=== PATIENT | male | born 1960 | race Caucasian/White ===

== ENCOUNTER 2019-04-12 14:54 | Outpatient (CLI) | payer BC, SELFPAY ==
--- NOTE | ~2019-04-12 | XR_ITS ---
XR hip RT min 3V w AP pelvis 04/12/2019 15:26 Indication: Right hip pain Procedure: 4 views of the right hip including AP pelvis Comparison: No prior studies for comparison. Findings: There is osteoarthritis of the hips, severe on the right and moderate on the left. There is lower lumbar spondylosis. No acute fracture or traumatic malalignment. Pelvic rings are intact. Sacr al foramen are symmetric. Impression: 1: Bilateral osteoarthritis of the hips, severe on the right and moderate on the left. Reviewed, dictated and finalized at location A. ROL ROOM TECHNICIAN Impression: 1: Bilateral osteoarthritis of the hips, severe on the right and moderate on th e left.
--- NOTE | ~2019-04-12 | XR_ITS ---
XR knee LT 3V DATE: 04/12/2019 15:27 INDICATION: Left knee pain TECHNIQUE: AP, lateral COMPARISON: None FINDINGS: No fracture, dislocation, periosteal reaction or bone destruction. The joint spaces are re latively preserved. No radiopaque intra-articular loose body or chondrocalcinosis. IMPRESSION: No significant abnormality Reviewed, dictated and finalized at location B. NUTRITION SPECIALIST IMPRESSION: No significant abnormality
== END 2019-04-12 14:55 | disposition home or self-care (01) ==
PROVIDERS: PCP Family Medicine; Visit Provider Family Medicine
DX: M25.551 Pain in right hip (principal); M25.562 Pain in left knee; M16.0 Bilateral primary osteoarthritis of hip
CPT/HCPCS: 73502; 73562

== ENCOUNTER 2019-05-13 12:59 | Outpatient (CLI) | payer BC, SELFPAY ==
--- NOTE | ~2019-05-13 | XR_ITS ---
EXAMINATION: XR lg joint inject/asp w image DATE: 05/13/2019 14:27 INDICATION: Right hip osteoarthritis with pain TECHNIQUE: A time-out was performed to verify the patient's name, date of , and procedure to b e performed. The procedure including the risks, benefits, and alternatives was discussed with the pat ient. Risks discussed included bleeding, allergic reaction and infection. The patient understood the risks and agreed to proceed. The skin overlying the right hip joint was prepped and draped in usual sterile fashion. Anesthetic was administered with 1% lidocaine subcutaneously. A 22 G needle was ad vanced under fluoroscopic guidance into the joint. Injection of 0.6 mL of Omnipaque 240 confirmed in tra-articular position of the needle. Subsequently, injectate consisting of 3 mm of a 2:1 mixture of 0.5% bupivacaine: 80 mg/mL Depo-Medrol for a total dosage of 80 mg Depo-Medrol was instilled. Wash[place] t of contrast was seen confirming intra-articular administration. The needle was removed and the entr y site was cleaned and dressed. There were no immediate complications. Fluoroscopy exposure time was 0.1 minutes. The total number of images was 2. FINDINGS: Real-time fluoroscopy demonstrates the needle in the right hip joint. Severe right hip oste oarthritis. Patient's pain prior to procedure:6/10. Patient's pain following the procedure: 06/03. IMPRESSION: 1. Right hip injection of local anesthetic and steroid with decrease in the patient's presenting pain . Reviewed, dictated and finalized at location A. IMPRESSION: 1. Right hip injection of local anesthetic and steroid with decrease in the pat ient's presenting pain.
== END 2019-05-13 13:00 | disposition home or self-care (01) ==
PROVIDERS: PCP Family Medicine; Visit Provider Orthopaedic Surgery
DX: M16.11 Unilateral primary osteoarthritis, right hip (principal)
CPT/HCPCS: 20610; 77002; J1040; Q9966

== ENCOUNTER 2019-11-30 03:07 | Outpatient (CLI) | payer BC, SELFPAY ==
[2019-11-30 18:16] LABS: SARS-CoV-2 RNA PCR Negative
== END 2019-11-30 03:08 | disposition home or self-care (01) ==
PROVIDERS: PCP Family Medicine; Visit Provider Internal Medicine Cardiovascular Disease
DX: Z01.812 Encounter for preprocedural laboratory examination (principal); Z20.828 Contact with and (suspected) exposure to other viral communicable diseases
CPT/HCPCS: 87635; C9803; U0003

== ENCOUNTER 2019-12-02 04:22 | Day surgery (SDC) | payer BC, SELFPAY ==
[2019-12-01 16:58] VITALS: BMI 27.1
--- NOTE | 2019-12-02 09:30 | SUR.PREOP ---
ARRIVES VIA WC TO [facility] FOR SCHEDULED BIOTRONIK BIOMONITOR IMPLANT W/ DR. STRANGE. ORIENTED TO ROOM, PLAN OF CARE, PROCEDURE. QUESTIONS ANSWERED. VS OBTAINED, SKIN PREP COMPLETED, CONSENT SIGNED. STATES LAST DOSE OF XARELTO WAS 11/28/2019. WILL CONTINUE TO MONITOR.
[2019-12-02 09:50] VITALS: BP 190/114; PULSE 68; RESP 16; TEMP 36.1; O2SAT 100
--- NOTE | 2019-12-02 10:00 | SUR.PREOP ---
JESSICA Culver FROM [employer] HERE FOR PROCEDURE.
--- NOTE | 2019-12-02 10:20 | SUR.PREOP ---
DR. STRANGE HERE TO SEE PT PRIOR TO PROCEDURE.
--- NOTE | 2019-12-02 10:33 | WPDHPUPDATE1 ---
History and Physical Update Update Date/Time: 12/02/19 10:33 History and Physical has been reviewed, including an updated exam of the patient. There are NO changes in the patient's condition. Risks, benefits, and alternatives have been discussed and questions answered. Patient agrees to proceed with procedure.
--- NOTE | 2019-12-02 10:33 | WPDMODSED ---
Moderate Sedation Note-Pt Data Patient Data Diagnosis: Paroxysmal atrial fibrillation, status post AFib ablation/pulmonary vein isolation Present Complaint: paroxysmal atrial fibrillation Procedure to be performed/Plan: insertion of a loop recorder under local anesthesia, possible conscious sedation Allergies Allergy/AdvReac Type Severity Reaction Status Date / Time No Known Allergies Allergy Verified 11/29/19 14:05 Home Medications Medication Instructions Recorded Confirmed Type metoprolol succinate 100 mg 100 mg PO DAILY 01/06/19 12/01/19 History tablet,extended release 24 hr rivaroxaban 20 mg tablet 20 mg PO DAILY 01/06/19 12/01/19 History glucosamine HCl 1,500 mg tablet 1,500 mg PO DAILY 01/12/19 12/01/19 History ferrous sulfate 325 mg (65 mg 325 mg PO DAILY 04/16/19 12/01/19 History iron) tablet lisinopril 10 mg tablet 10 mg PO BID #60 tablet 11/04/19 12/01/19 Rx tramadol 50 mg tablet 50 mg PO Q8H PRN #90 tablet 11/12/19 12/01/19 Rx B-complex with vitamin C 1 cap PO DAILY 11/29/19 12/01/19 History Lactobacills gasseri-Bifidobac 1 cap PO DAILY 11/29/19 12/01/19 History bifidum,longum 1.5 billion cell capsule omega-3 fatty acids 180 mg-fish 1 cap PO DAILY 11/29/19 12/01/19 History oil 400 mg capsule amiodarone 400 mg PO BID 12/01/19 12/01/19 History milk thistle seed extract 140 mg PO DAILY 12/01/19 12/01/19 History multivitamin 1 tablet PO DAILY 12/01/19 12/01/19 History Sedation/Anesthesia: No previous sedation/anesthesia problems (including family history). 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 Surgical History Surgical History S/P ablation of atrial fibrillation Family History Family History Other Carcinoma of colon Hypertension Social History Social History Smoking status: Never smoker Second hand tobacco smoke exposure: Yes Smoking end date: 02/24/98 Alcohol intake: current Drinks per week: 2 Alcohol use details: socially Substance use: never Substance use type: does not use Living arrangements: alone Gender identity (if verbalized by the patient): Male Spiritual care concerns: No Agree to blood products: Yes Mod Sed Physical Exam Physical Exam Pre Procedural Exam: Normal: Appearance, Eyes, Ears, Nose, Neck, Throat, Airway, Lungs, Heart Size, Heart Rate, Neuro Exam, Abdomen, Kidneys, Breasts, Extremities and Skin ( skin over her left parasternal area is intact) and Variation: Heart Rhythm ( probably sinus rhythm with PACs or PVCs) Hours since solid foods: 12 Hours since liquid intake: 12 Internal Medicine - PN: Obj Da Vital Signs Vital Signs: Vital Signs - 24 hr 12/02/19 09:50 Temperature 96.9 F L Pulse Rate 68 Respiratory Rate 16 Blood Pressure 190/114 H Pulse Oximetry 100 ASA Classification/Sedation ASA Classification/Sedation Risks: Risks, benefits and alternatives explained and patient/family accepted plan for sedation. patient has held the last 2 doses of Xarelto. Patient re-evaluated immediately prior to sedation.
--- NOTE | 2019-12-02 10:50 | PM.PROC ---
Procedure Note - Detailed Date of procedure: 12/02/19 Pre-op diagnosis: PAF Post-op diagnosis: same Procedure performed: Implantation of a Biotronik loop recorder Description of procedure: After informed consent the patient was given lidocaine local anesthesia in the 4th intercostal space in the left parasternal area. We made Biotronik loop recorder was inserted without difficulty. Hemostasis obtained with local pressure. The incision was closed with skin adhesive. The area was dressed with a sterile dressing. The patient tolerated the procedure well. R wave sensing was 1.42 V. Implants: Biotronik loop recorder, model [id number], serial [id number] Anesthesia: local ( 1% lidocaine) Surgeon: Kenisha Umanzor MD Estimated blood loss (mL): 2 Drains: No Packing: No Pathology: none sent Complications: No immediate complications Condition: stable Disposition: observation
--- NOTE | 2019-12-02 10:52 | PM.OP ---
Procedure Note - Brief Procedure Note - Brief Date of procedure: 12/02/19 Pre-op diagnosis: PAF Post-op diagnosis: same Description of procedure: uneventful implant of a Biotronik loop recorder left parasternal area Implants: Biotronik loop recorder Surgeon: Kenisha Umanzor MD Complications: No immediate complications Disposition: observation
== END 2019-12-02 11:45 | disposition home or self-care (01) ==
PROVIDERS: PCP Family Medicine; Visit Provider Internal Medicine Cardiovascular Disease
PROC: (CPT 33285; principal; 2019-12-02 10:00)
DX: I48.0 Paroxysmal atrial fibrillation (principal); Z79.01 Long term (current) use of anticoagulants; D50.9 Iron deficiency anemia, unspecified
CPT/HCPCS: 33285; C1764

== ENCOUNTER 2020-01-31 08:56 | Outpatient (CLI) | payer BC, SELFPAY ==
--- NOTE | ~2020-01-31 | XR_ITS ---
EXAMINATION: XR ankle LT min 3V DATE: 01/31/2020 09:33 INDICATION: Left foot and ankle pain TECHNIQUE: Anteroposterior, oblique and lateral views of the left ankle were obtained. COMPARISON: None. FINDINGS: Malunion of a chronic segmental fracture of the distal left fibular diaphysis which has healed with 3 0 degree lateral angulation. There is significant widening of the distal tibiofibular syndesmosis. Th ere is advanced secondary osteoarthritis at the ankle joint with osteolysis and significant loss of b one stock at the lateral aspect of the tibial plafond as well as the lateral aspect of the talar dome . This results in 65 degrees valgus angulation of the talus which is subluxed laterally into the spac e created by the distal tibiofibular diastases and the defect at the medial aspect of the tibial plaf ond. There is heterotopic ossification versus chronic displaced bone fragments anterior and posterior to the ankle. There is some periosteal reaction along the medial metaphyseal region of the distal ti polina. No acute fractures identified. There appears be collapse of both the longitudinal and transverse arch of the foot. The joint spaces in the visualized mid and hindfoot appear relatively preserved as lacie from the subtalar joint which is not adequately profiled for proper assessment. Prominent soft ti ssue swelling about the distal lower leg, ankle and hindfoot. IMPRESSION: 1. Advanced osteoarthritis and marked valgus angulation at the tibiotalar articulation which is likel y secondary to chronic malunited distal fibular fracture with associated distal tibiofibular syndesmo tic diastases. Reviewed, dictated and finalized at location A. AL RESCUER IMPRESSION: 1. Advanced osteoarthritis and marked valgus angulation at the tibiotalar artic ulation which is likely secondary to chronic malunited distal fibular fracture with associated distal tibiofibular syndesmotic diastases.
== END 2020-01-31 08:57 | disposition home or self-care (01) ==
LOC: CHSIMG 08:59
PROVIDERS: PCP Physician Assistant; Visit Provider Orthopaedic Surgery
DX: M25.572 Pain in left ankle and joints of left foot (principal)
CPT/HCPCS: 73610

== ENCOUNTER 2020-02-03 10:51 | Outpatient (CLI) | payer BC, SELFPAY ==
--- NOTE | 2020-02-03 11:30 | NEURO_ITS ---
Impression: # Complains of numbness of hands. # Bilateral Carpal Tunnel Syndrome, left more than right. # Bilateral ulnar neuropathy across the elbows, left more than right. # Abnormal needle/EMG exam. Nerve Conduction Studies Anti Sensory Summary Table Stim Site NR Peak (ms) P-T Amp (?V) Site1 Site2 Delta-P (ms) Dist (cm) Pj (m/s) Left Median Anti Sensory (2-3nd Digit) Wrist 7.5 19.3 Wrist 2-3nd Digit 7.5 14.0 19 Wrist 6.3 21.5 Wrist 2-3nd Digit 7.5 14.0 19 Right Median Anti Sensory (2-3nd Digit) Wrist 5.8 7.5 Wrist 2-3nd Digit 5.8 14.0 24 Wrist 5.2 19.4 Wrist 2-3nd Digit 5.8 14.0 24 Left Radial Anti Sensory (Base 1st Digit) Wrist 2.3 8.7 Wrist Base 1st Digit 2.3 0.0 Right Radial Anti Sensory (Base 1st Digit) Wrist 3.3 4.0 Wrist Base 1st Digit 3.3 0.0 Left Ulnar Anti Sensory (5th Digit) Wrist 4.1 31.1 Wrist 5th Digit 4.1 14.0 34 Right Ulnar Anti Sensory (5th Digit) Wrist 3.3 11.7 Wrist 5th Digit 3.3 14.0 42 Motor Summary Table Stim Site NR Onset (ms) O-P Amp (mV) Site1 Site2 Delta-0 (ms) Dist (cm) Pj (m/s) Left Median Motor (Abd Poll Brev) Wrist 6.6 3.0 Elbow Wrist 6.2 31.0 50 Elbow 12.8 3.2 Right Median Motor (Abd Poll Brev) Wrist 5.7 1.8 Elbow Wrist 5.9 32.0 54 Elbow 11.6 3.6 Left Ulnar Motor (Abd Dig Minimi) Wrist 3.6 7.6 A Elbow Wrist 8.4 33.0 39 A Elbow 12.0 5.2 B Elbow Wrist 6.2 28.0 45 B Elbow 9.8 4.5 Right Ulnar Motor (Abd Dig Minimi) Wrist 3.5 3.3 A Elbow Wrist 8.1 32.0 40 A Elbow 11.6 1.6 B Elbow Wrist 4.7 24.0 51 B Elbow 8.2 2.0 F Wave Studies NR F-Lat (ms) L-R F-Lat (ms) Left Median (Mrkrs) (Abd Poll Brev) 29.77 0.00 Right Median (Mrkrs) (Abd Poll Brev) 29.77 0.00 Left Ulnar (Mrkrs) (Abd Dig Min) 29.45 0.44 Right Ulnar (Mrkrs) (Abd Dig Min) 29.01 0.44 EMG Side Muscle Nerve Root Ins Act Fibs Amp Dur Recrt Comment Right 1stDorInt Ulnar C8-T1 Nml Nml Nml >12ms Reduced Right Ext Indicis Radial (Post Int) C7-8 Nml Nml Nml Nml Nml Right Ext Digitorum Radial (Post Int) C7-8 Nml Nml Nml Nml Nml Right BrachioRad Radial C5-6 Nml Nml Nml Nml Nml Right PronatorTeres Median C6-7 Nml Nml Nml Nml Nml Right Abd Poll Brev Median C8-T1 Nml Nml Nml >12ms Reduced Left 1stDorInt Ulnar C8-T1 Nml Nml Nml >12ms Reduced Left Ext Indicis Radial (Post Int) C7-8 Nml Nml Nml Nml Nml Left Ext Digitorum Radial (Post Int) C7-8 Nml Nml Nml Nml Nml Left BrachioRad Radial C5-6 Nml Nml Nml Nml Nml Left PronatorTeres Median C6-7 Nml Nml Nml Nml Nml Left Abd Poll Brev Median C8-T1 Nml Nml Nml >12ms Reduced Right ABD Dig Min Ulnar C8-T1 Nml Nml Nml >12ms Reduced Left ABD Dig Min Ulnar C8-T1 Nml Nml Nml >12ms Reduced MTDD
== END 2020-02-03 10:52 | disposition home or self-care (01) ==
PROVIDERS: PCP Physician Assistant; Visit Provider Physician Assistant
DX: G56.03 Carpal tunnel syndrome, bilateral upper limbs (principal); G56.23 Lesion of ulnar nerve, bilateral upper limbs
CPT/HCPCS: 95886; 95911

== ENCOUNTER 2020-12-07 13:52 | Outpatient (RCR) | payer BC, MEDICAID, SELFPAY ==
--- NOTE | 2020-12-07 15:11 | PTOPEVAL ---
PHYSICAL THERAPY EVALUATION AND POC Thank you for referring Terrence Todd to [facility].? The patient is scheduled to be seen for therapy? 1-2/week for 4 weeks. Please review, sign, date and return this plan of care FREDA. I agree with and certify that the following plan of care is medically necessary. Referring Physician Date Attending Provider: Mari Herrera PA-C Evaluation Evaluation Information Problem Diagnosis left BKA Onset 3months alvarez Subjective Information Terrence is here following a Query Text:As Reported By Patient/ left below knee amputation on Family 08/17/2020. Has a prosthetic that he is wearing today - it does keep twisting so we will educate on using sock ply to stabilize. Has right hip pain and arthritis. He was supposed to get a JORGITO but COVID delayed the surgery but then he got an abcess that resulted in poor healing and then an amputation . occasional phantom pain. Pain Assessment Timing of Pain Assessment Timing of Pain Assessment Assessment Self Report Self Report Pain Level 0 Pain Score Pain Score 0: Self Report Lower Extremity Muscle Strength Testing Hip Strength Right Hip Flexion Strength 5 Normal Hip Abduction Strength 4- Good - Left Hip Flexion Strength 4+ Good + Hip Abduction Strength 4- Good - Hip Strength Comments unable to lie on stomach due to neck pain - unable to test hip extension strength Knee Strength Bilateral Knee Flexion Strength 5 Normal Knee Extension Strength 5 Normal Muscle Length Testing Muscle Length Testing Neftaly Test Shortened Muscles Short (R) Iliopsoas,Short (L) Iliopsoas Posture Posture Standing Position Posture Evaluation View Lateral Head/C-Spine Posture Forward Head Thoracic Spine Posture Flattened Lumbar Spine Posture Decreased Lordosis Shoulder Posture (L) Rounded,(R) Rounded,(L) Forward,(R) Forward,(L) Elevated,(R) Elevated Scapula Posture (L) Protracted,(R) Protracted Weight Distribution Weight Shifted Right Hip Posture (L) Flexed,(R) Flexed Additional Posture Comments pt c/o mid thoracic pain that is referring from his neck.
--- NOTE | 2020-12-18 09:20 | PCPTNOTE ---
Patient called & cancelled scheduled appointment this date due to having another appointment.
--- NOTE | 2020-12-19 17:39 | PCPTNOTE ---
PHYSICAL THERAPY DISCHARGE NOTE Attending Provider: Mari Herrera PA-C Patient:Trerence Todd Date of :1960 Patient called and reported that his transportation changed and will need to go to therapy somewhere else. He will be discharged at this time. Patient?s initial visit was on 12/07/2020.l of visits. The goals have not been met. Thank you for referring this patient to [facility]. Please review, sign, date and return this discharge summary FREDA. I have been updated about the patient's current status and I agree with discharge from the above service at this time. Referring Physician Date
== END 2020-12-20 13:49 | disposition home or self-care (01) ==
LOC: ANHPT 13:52
PROVIDERS: PCP Family Medicine; Visit Provider Physician Assistant
DX: Z89.512 Acquired absence of left leg below knee (principal)
CPT/HCPCS: 97163

== ENCOUNTER 2020-12-25 16:47 | Outpatient (RCR) | payer BC, SELFPAY ==
--- NOTE | 2020-12-25 18:03 | PTOPEVAL ---
Thank you for referring Terrence Todd to [facility].? The patient is scheduled to be seen for therapy? __3__x/week for 12 visits . Please review, sign, date and return this plan of care FREDA. I agree with and certify that the following plan of care is medically necessary. Referring Physician Date Admitting Provider: Attending Provider: Jason Aguirre MD Referring Provider: *PT Outpatient Evaluation Start: 12/25/20 17:06 Freq: Status: Active Protocol: Document 12/25/20 17:06 SARITA (Rec: 12/25/20 18:02 SARITA [email or web address]) Therapy Assessment Status Assessment Status Assessment Status Evaluation Evaluation Information Problem Diagnosis right hip djd, left BKA Onset 12/18/20 Subjective Information Pt. reports he developed a Query Text:As Reported By Patient/ bone infection in about 6 Family months ago. He underwent amputation of the right lower leg about 4-5 months ago. He recieved his prothesis about 6 weeks ago. He reports that he has been using a wc for the most part. He reports that he has severe right hip OA and will undergo hip replacement next year. He reports that he would like to be able to walk prior to surgery. Prior Level of Function Activity Level (Last 3 Months) Occupation retired Hand Dominance Right Activity of Daily Living Ability Independent Indoor/Home Mobility Independent Community Mobility Dependent Stairs Ability Independent Functional Cognition (Planning, Shopping Independent , Taking Medications) Cooking No Cleaning No Laundry No Shopping No Driving No Pain Assessment Pain Scale Pain Scale Used Numeric (1 - 10) Self Report Pain Assessment Right Hip(s) Reported Pain Level 7 Pain Description Aching Greatest Pain Intensity 7 Pain Score Pain Score 7: Self Report Interventions Used Interventions Used By Clinicians Exercise Lower Extremity Muscle Strength Testing General Lower Extremity Strength Gross Lower Extremity Strength -right hip flexion 3-/5 -left hip flexon 4/5 -right hip abduction 3-/5 -left hip abduction 3+/5 -right knee
== END 2021-02-13 10:20 | disposition home or self-care (01) ==
LOC: CHSPT 16:47
PROVIDERS: PCP Physician Assistant; Visit Provider Orthopaedic Surgery
DX: M16.11 Unilateral primary osteoarthritis, right hip (principal)
CPT/HCPCS: 97110; 97112; 97116; 97161; 97530

== ENCOUNTER 2021-02-22 08:05 | Outpatient (CLI) | payer BC, MEDICAID, SELFPAY ==
[2021-02-22 10:44] LABS: Albumin Level 4.8 g/dL (3.5-5.1)
[2021-02-22 10:50] LABS: Urine Cotinine NEGATIVE
[2021-02-22 10:51] LABS: Basophils Absolute Auto 0.1 K/mm3 (0.0-0.1); Basophils Percent Auto 0.7 % (0.2-1.2); Eosinophils Absolute Auto 0.1 K/mm3 (0-0.3); Eosinophils Percent Auto 1.3 % (0-4.4); Hematocrit 39.6 % (42.0-52.0); Hemoglobin 13.9 g/dL (14.0-18.0); Immature Granulocyte Absolute 0.02 K/mm3 (0.00-0.031); Immature Granulocyte Percent A 0.3 % (0-0.5); Immature Reticulocyte Fraction 7.2 % (3.0-15.9); Lymphocytes Absolute Auto 1.33 K/mm3 (0.9-3.2); Lymphocytes Percent Auto 18.8 % (18.3-44.2); Mean Corpuscular HGB Conc 35.1 g/dl (32-36); Mean Corpuscular Hemoglobin 31.8 pg (26-34); Mean Corpuscular Volume 90.6 fl (80-100); Mean Platelet Volume 9.4 fl (7.4-10.4); Monocytes Absolute Auto 0.8 K/mm3 (0.1-0.6); Monocytes Percent Auto 11.2 % (2.6-8.5); Neutrophils Absolute Auto 4.8 K/mm3 (1.3-6.7); Neutrophils Percent Auto 67.7 % (45.5-73.1); Platelet Count Result 264 k/mm3 (150-375); Red Blood Count 4.37 M/mm3 (4.6-6.20); Red Cell Distribution Width 12.8 % (11.5-14.5); Reticulocyte Hemoglobin Conten 37.8 pg (28.2-35.7); Reticulocyte Percent 1.96 % (0.7-4.3); Reticulocytes Absolute 0.09 B/L (32.2-175.7); White Blood Count 7.1 K/mm3 (4.5-10.0)
[2021-02-22 10:57] LABS: Add Urine Microscopic? YES; Appearance Urine Clear (Clear); Bilirubin Urine Negative (Negative); Blood Urine 2+ (Negative); Color Urine Straw (Yellow); Glucose Urine UA Negative (Negative); Ketones Urine Negative (Negative); Leukocyte Esterase Ur Negative LEU/UL (Negative); Mucus Urine Rare /lpf; Nitrate Urine Negative (Negative); Protein Urine Negative (Negative); Urobilinogen Urine Negative mg/dL (<2.0); WBC Urine 0-3 /hpf
[2021-02-22 11:15] LABS: Specific Grav Ur 1.003 (1.001-1.035)
[2021-02-22 13:43] LABS: Hemoglobin A1C 5.2 % (<5.7)
[2021-02-22 13:48] LABS: INR 1.4; Prothrombin Time 16.6 Seconds (11.1-14.7)
[2021-02-22 13:49] LABS: Partial Thromboplastin Time 32.5 SECONDS (22.3-36.8)
== END 2021-02-22 08:06 | disposition home or self-care (01) ==
PROVIDERS: PCP Family Medicine; Visit Provider Orthopaedic Surgery
DX: M16.9 Osteoarthritis of hip, unspecified (principal); Z01.818 Encounter for other preprocedural examination
CPT/HCPCS: 80307; 81001; 82040; 83036; 85025; 85046; 85610; 85730; 86850; 86900; 86901; 87081

== ENCOUNTER 2021-02-22 08:23 | Outpatient (CLI) | payer BC, MEDICAID, SELFPAY ==
--- NOTE | 2021-02-22 09:21 | ECG_ITS ---
Measurements Intervals [place] Rate: 109 P: [place]: 0 QRS: 36 QRSD: 90 T: 41 QT: 315 QTc: 425 Interpretive Statements ATRIAL FIBRILLATION WITH RAPID VENTRICULAR RESPONSE NONSPECIFIC ST & T-WAVE ABNORMALITY- INF/HIGH LAT LEADS ABNORMAL ECG Electronically Signed On 02-22-2021 10:03:19 CUSTOMER SERVICES SUPERVISOR by Mando Olson D.O.
[2021-02-22 11:05] LABS: Alanine Aminotransferase 27 U/L (4-50); Albumin Level 4.8 g/dL (3.5-5.1); Alkaline Phosphatase 65 U/L (38-126); Anion Gap 10 mmol/L (8-16); Aspartate Amino Transferase 37 U/L (17-59); Bilirubin,Total 0.4 mg/dL (0.2-1.3); Blood Urea Nitrogen 10 mg/dL (9-20); Calcium 9.6 mg/dL (8.4-10.2); Carbon Dioxide 26 mmol/L (22-30); Chloride 92 mmol/L (98-107); Estimated Glomerular Filt Rate > 60; Glucose 84 mg/dL (65-110); Potassium 4.3 mmol/L (3.4-5.0); Sodium 128 mmol/L (137-145)
[2021-02-22 11:10] LABS: Iron 102 ug/dL (49-181)
[2021-02-22 11:19] LABS: Percent Iron Saturation 23 % (20-50)
[2021-02-22 11:42] LABS: Thyroid Stimulating Hormone Reflex 0.876 uIU/mL (0.465-4.68)
[2021-02-22 12:10] LABS: Folic Acid 12.9 ng/mL (2.76->20)
== END 2021-02-22 08:24 | disposition home or self-care (01) ==
PROVIDERS: PCP Family Medicine; Visit Provider Family Medicine
DX: R53.83 Other fatigue (principal); D64.9 Anemia, unspecified; E87.1 Hypo-osmolality and hyponatremia; I10 Essential (primary) hypertension; I48.91 Unspecified atrial fibrillation; I48.92 Unspecified atrial flutter
CPT/HCPCS: 36415; 80053; 80307; 81001; 82040; 82607; 82728; 82746; 83036; 83540; 83550; 84443; 85025; 85046; 85610; 85730; 86850; 86900; 86901; 87081; 93005

== ENCOUNTER 2021-03-02 10:56 | Outpatient (CLI) | payer BC, SELFPAY ==
[2021-03-02 12:08] LABS: Sodium 135 mmol/L (136-145)
[2021-03-02 13:02] LABS: INR 1.2; Prothrombin Time 12.2 Seconds (9.50-12.10)
== END 2021-03-02 10:57 | disposition home or self-care (01) ==
LOC: CHSLAB 10:59
PROVIDERS: PCP Family Medicine; Visit Provider Anesthesiology
DX: E87.1 Hypo-osmolality and hyponatremia (principal)
CPT/HCPCS: 36415; 84295; 85610

== ENCOUNTER 2021-03-06 00:25 | Day surgery (SDC) | payer BC, SELFPAY ==
--- NOTE | 2021-02-22 07:56 | PC.NURSE ---
Report to the Outpatient Waiting Room, entrance under the green pavilion located off [facility], at time _0830_ on date _03/06/21_. OR Time: _1030 AM__. - You and your visitor will be asked a series of questions to screen for COVID 19 for your protection. - A mask is required within the hospital. - NO visitors is allowed at this time. Patient visitors will be guided where to wait when not with patient. Preoperative COVID Testing Requirements: No COVID Test needed if: (proof is required; if not received patient will have Rapid Test prior to entry) - Patient has received COVID Vaccine at least 14 days prior to procedure date or - Patient has positive COVID test result within last 90 days of surgery date. COVID Test needed if above criteria is not met If not COVID vaccinated a COVID test must be conducted within 72 hours of surgery and patient is asked to isolate self from time of testing until procedure. You will go to the [facility] for your COVID testing. The [facility] is located at the corner of [address] [facility]. You will only be called if COVID results are positive and your surgeon may reschedule your elective surgery date. Patients may have clear liquids (water, carbonated beverages, clear teas, apple juice) until 3 hours prior to surgery with a maximum of 20 ounces. (0730 AM) - No food from midnight until time of surgery - Infants may have breast milk until 4 hours before surgery, infant formula 6 hours prior to surgery. - Children will be allowed to drink immediately following surgery. If applicable, please bring a bottle or sippy cup to assist with drinking. Juice, water, soda, and popsicles are readily available. For infants on formula, please bring formula the day of surgery. Pacifiers are allowed. Take the following medications with a SIP of water the morning of surgery: _AMLODIPINE, GABAPENTIN, METOPROLOL_ Medications to discontinue per DR. AVILEZ: _RIVAROXABAN - LAST DOSE 03/03/21 _ Medications to discontinue per ANESTHESIA: _MILK THISTLE, VIT B12 - LAST DOSE 03/02/21_ Please no make-up, nail welsh, hairspray, perfume, deodorant, or body powder the day of surgery. No jewelry (including any body piercings) or valuables the day of surgery, leave them at home. Please take a shower or bath the night before, or the morning of, surgery with an antibacterial soap. Wear comfortable, loose fitting clothing. Children are encouraged to wear pajamas. - Jewelry must be removed prior to entering the operating room. Rings and piercings that are not removed may be cut off. - The hospital will not accept responsibility for valuables. - Please leave all valuables, including medications, at home the day of surgery. If you are going home after surgery, a licensed van cdl driver must drive you home. - NO public transportation without another adult. - We recommend that an adult stay with you for 24 hours following discharge. - We also recommend that you do not drive, make important decision, drink alcoholic beverages, or take any drugs that were not prescribed by your health care provider for at least 24 hours after your discharge time. For Pediatric surgeries, we recommend two adults accompany the child home (only one inside the building at this time). Follow any additional instructions given to you from your surgeon. BLAISE SCRUB DIRECTED Telephone instructions given to ____PT and asked if any additional questions and then verbalized understanding. Patient advised to call surgeon office or pre surgery nurse liaison [phone] if any additional questions.
[2021-02-22 08:52] VITALS: BP 132/78; PULSE 88; RESP 20; TEMP 36.4; O2SAT 100; BMI 29.8
[2021-03-06] VITALS (13 sets, daily range): BP systolic 100–138; BP diastolic 61–93; PULSE 43–85; RESP 12–18; TEMP 36.3–37.2; O2SAT 96–100; BMI 30.4
--- NOTE | ~2021-03-06 | XR_ITS ---
EXAMINATION: XR hip RT 1V DATE: 03/06/2021 16:26 INDICATION: Total right hip arthroplasty. Postop. TECHNIQUE: A single view of right hip on 2 radiographs was obtained. COMPARISON: Right hip radiographs 12/18/2020 FINDINGS: There is a total right hip arthroplasty in near-anatomic alignment. No fracture. There is g as in the soft tissues, consistent with recent surgery. IMPRESSION: 1. Total right hip arthroplasty in near-anatomic alignment. Reviewed, dictated and finalized at location B. [facility]
--- NOTE | 2021-03-06 06:52 | WPDANESEPPF ---
Anes - Initial Pre Proc Eval Procedure: Operation Date: 03/06/21 12:00 Proposed Procedures p Right Total Hip Arthroplasty - Jason Aguirre MD Date/Time: 03/06/21 06:52 Surgeon: Jason Aguirre MD Pre Op Diagnosis: right hip djd Patient Data Age: 60 Gender: M Height: 1.83 m Weight: 99.9 kg Last Vital Signs Temp 36.4 C 02/22/21 08:52 Pulse 88 02/22/21 08:52 Resp 20 02/22/21 08:52 BP 132/78 02/22/21 08:52 Pulse Ox 100 02/22/21 08:52 Allergies Allergy/AdvReac Type Severity Reaction Status Date / Time No Known Allergies Allergy Verified 02/22/21 08:46 Home Medications Medication Instructions Recorded Confirmed Type rivaroxaban 20 mg tablet 20 mg PO HS 01/06/19 02/22/21 History gabapentin 300 mg capsule 300 mg PO BID 10/25/20 02/22/21 History amlodipine 5 mg tablet 5 mg PO QAM 02/01/21 02/22/21 History atorvastatin 40 mg tablet 40 mg PO DAILY 02/01/21 02/22/21 History lisinopril 10 mg tablet 20 mg PO DAILY tablet 02/01/21 02/22/21 History milk thistle 500 mg capsule 500 mg PO BID 02/01/21 02/22/21 History vit [id number] factor-folic 1 tablet PO QAM 02/01/21 02/22/21 History acid cmb#2 500 mcg-20 mg-800 mcg tablet chlorhexidine gluconate 4 % 1 applic TOPICAL ONCE #237 ml 02/19/21 02/22/21 Rx topical liquid metoprolol succinate 200 mg PO QAM 02/22/21 02/22/21 History Patient hx anesthesia problems: none Family hx anesthesia problems: none Results Review: All pre-operative results and documents have been reviewed as part of the pre-operative evaluation. 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 Ulcer of left foot due to type 2 diabetes mellitus Surgical History Surgical History S/P ablation of atrial fibrillation Family History Family History Other Carcinoma of colon Cerebrovascular accident Hypertension Social History Social History Smoking packs per day: 1 Smoking cigarettes per day: 20.0 Years smoked: 15 Smoking pack-years: 15.00 Tobacco type: cigarettes Second hand tobacco smoke exposure: Yes Smoking end date: 02/24/98 Additional smoking assessment comments: PT DENIES ALL FORMS OF TOBACCO USE Alcohol intake: current Drinks per week: 2 Alcohol use details: socially Substance use: never Substance use type: does not use Living arrangements: with family Gender identity (if verbalized by the patient): Male Spiritual care concerns: No Agree to blood products: Yes Anes - Eval Final PreProcedure Day of Procedure 03/06/21 06:52 Patient weight: overweight Heart: regular rate and rhythm Lungs: clear to auscultation and normal air movement Airway: Mallampati scale class II Neurological: alert and oriented Last oral intake: >/= 8 hours ASA classification: III Emergent: no Anesthetic plan: proceed Anesthesia type and monitoring: general ETT and standard monitoring Results Review: All pre-operative results and documents have been reviewed as part of the pre-operative evaluation. Informed Consent: The patient's anesthetic plan and its attendant risks and benefits were discussed with the patient/family/POA. Questions were solicited and answers provided to the satisfaction of the patient/family/POA.
--- NOTE | 2021-03-06 08:06 | WPDHPUPDATE1 ---
History and Physical Update Update Date/Time: 03/06/21 08:06 History and Physical has been reviewed, including an updated exam of the patient. There are NO changes in the patient's condition. Risks, benefits, and alternatives have been discussed and questions answered. Patient agrees to proceed with procedure.
[2021-03-06] MEDS: LACTATED RINGERS 1,000 ML 30 ML IV CONT ×2 (10:45→15:28)
[2021-03-06] MEDS: ACETAMINOPHEN 500 MG TABLET 1000 MG PO (11:00)
[2021-03-06] MEDS: TRANEXAMIC ACID 1,000MG/ISO100 1,000 MG/100 ML BAG 200 MG IVPB (11:03)
[2021-03-06] MEDS: ceFAZolin 2 GM/D5W 50 ML 2 GM/50 ML BAG IVPB ×2 (12:20→20:02)
[2021-03-06] MEDS: TRANEXAMIC ACID 1,000 MG/10 ML AMPUL 1000 MG IV PUSH (14:25)
--- NOTE | 2021-03-06 15:53 | W.PM.PROC2 ---
Procedure Note - Detailed Date of Procedure 03/06/21 Pre-op Diagnosis right hip djd Post-op Diagnosis same Procedure Performed R JORGITO Surgeon Jason Aguirre MD Anesthesia general Description of Procedure THE PATIENT WAS TAKEN TO THE OPERATING ROOM IN STABLE CONDITION AND WAS PLACED IN THE LATERAL DECUBITUS AND THE RIGHT LOWER EXTREMITY WAS PREPPED AND DRAPED IN THE STERILE FASHION. INCISION WAS MADE IN THE POSTERIOR LATERAL SIDE OF THE HIP, DOWN TO THE FASCIA LAYER. THE FASCIA WAS INCISED. THE HIP WAS EXPOSED. THE SHORT EXTERNAL ROTATORS WERE EXPOSED. THE SCIATIC NERVE WAS IDENTIFIED. THERE WAS A HIGH BIFURCATION OF THE NERVE. INCISION WAS MADE THROUGH THE SORT EXTERNAL ROTATORS AND THE CAPSULE OF THE HIP JOINT. THE HIP WAS DISLOCATED. AN OSTEOTOMY WAS MADE TO THE FEMORAL NECK ABOUT 1 CM PROXIMAL TO THE LESSER TROCHANTER. THE ACETABULUM WAS EXPOSED. THERE WAS SEVERE DJD SEEN. BEGINNING WITH A 44 REAMER THE ACETABULUM WAS REAMED TO 53 MM. A 53 MM TRIAL WAS PLACED IN 35 DEG OF ABDUCTION AND ANTEVERSION WAS IN ALIGNMENT WITH THE TRANS ACETABULAR LIGAMENT. THE FIT WAS EXCELLENT. THE TRIAL WAS REMOVED. A 54 MM BIOMET G7 COMPONENT WAS THEN TAPPED IN TO PLACE IN 35 DEG OF ABDUCTION AND ANTEVERSION IN ALIGNMENT WITH THE TRANSVERSE ACETABULAR LIGAMENT. THE FIT WAS EXCELLENT. THE ACETABULAR LINER WAS PLACED AND CHECKED FOR STABILITY. NEXT THE FEMUR WAS PREPARED WITH INITIAL CANAL FINDER THEN SEQUENTIAL BROACHING WITH A TAPERLOC HIP SYSTEM, UNTIL A 14 BROACH FIT WELL IN 15 OF ANTEVERSION. A +0 HIGH OFFSET NECK WITH 36 MM HEAD TRIAL WAS PLACED. THE SHUCK TEST WAS EXCELLENT AND THE STABILITY IN FLEXION AND ROTATION WAS EXCELLENT. LEG LENGTHS WERE GROSSLY EQUAL. TRIALS WERE REMOVED. A BIOMET TAPERLOC 14 STEM WAS PLACED WITH A HIGH OFFSET NECK THE FIT WAS EXCELLENT IN 15 DEG OF ANTEVERSION. A +0 CERAMIC 36 MM FEMORAL HEAD WAS PLACED. THE HIP WAS TRIALED AND THE STABILITY WAS EXCELLENT WERE THE LEG LENGTHS AND THE SHUCK TEST. THE WOUND WAS IRRIGATED WITH STERILE BETADINE AND WATER FOR 3 MIN. THEN WASHED AGAIN. THE CAPSULE AND THE EXTERNAL ROTATORS WERE APPROXIMATED WITH NUMBER 1 VICRYL. THE FASCIA WITH No 2 QUIL AND THE SUB CUTANEOUS LAYER WITH 2-0 ABSORBABLE SUTURE WITH A RUNNING 3-0 SUBCUTICULAR LAYER WELL. DERMABOND WAS PLACED AND STERILE DRESSING WAS APPLIED. PATIENT WAS PLACED BACK ON TO THE SUPINE POSITION AND WAS EXTUBATED Estimated Blood Loss -150.0 Complications No immediate complications Condition stable Disposition PACU
[2021-03-06] MEDS: MORPHINE SULFATE (*CRX) 4 MG/ML INJ 3 MG IV PUSH (16:38)
--- NOTE | 2021-03-06 17:10 | PC.NURSE ---
This patient, Terrence Todd, was admitted to [facility]. Patient/family oriented to hospital policies and general routines including ID bracelet, bed and alarms, visiting hours, pain management, procedures, bathroom and other care routines, personal items, smoking policy, room service/diet, and visiting hours. Information on how to activate the Rapid Response Team has been discussed. Patient/Family are encouraged to report perceived risks to care and to ask questions if they do not understand what they are told or what they should do.
[2021-03-06] MEDS: SENNA/DOCUSATE SODIUM TABLET 2 TAB PO (19:07)
[2021-03-06] MEDS: GABAPENTIN 300 MG CAPSULE PO (19:07)
[2021-03-06] MEDS: KETOROLAC 15 MG/ML VIAL (*BKC) IV PUSH ×2 (19:07→23:31)
[2021-03-06] MEDS: FAMOTIDINE 20 MG TABLET PO (21:11)
[2021-03-06] MEDS: ACETAMINOPHEN 325 MG TABLET 650 MG PO (21:15)
[2021-03-06] MEDS: BACITRACIN OP OINT 3.5 GM TUBE 1 APPLIC EACH EYE (23:27)
[2021-03-07] MEDS: HYDROcodone/acetaminophen (*CRX) 7.5-325 MG TABLET 1 TAB PO ×2 (03:31→08:23)
[2021-03-07] MEDS: ceFAZolin 2 GM/D5W 50 ML 2 GM/50 ML BAG IVPB ×2 (04:47→14:48)
[2021-03-07 04:54] LABS: Basophils Percent Auto 0.2 % (0.2-1.2); Hematocrit 30.8 % (42.0-52.0); Hemoglobin 10.5 g/dL (14.0-18.0); Immature Granulocyte Absolute 0.04 K/mm3 (0.00-0.031); Immature Granulocyte Percent A 0.3 % (0-0.5); Lymphocytes Absolute Auto 0.77 K/mm3 (0.9-3.2); Lymphocytes Percent Auto 6.4 % (18.3-44.2); Mean Corpuscular HGB Conc 34.1 g/dl (32-36); Mean Corpuscular Hemoglobin 32.2 pg (26-34); Mean Corpuscular Volume 94.5 fl (80-100); Mean Platelet Volume 9.1 fl (7.4-10.4); Monocytes Absolute Auto 1.2 K/mm3 (0.1-0.6); Monocytes Percent Auto 9.8 % (2.6-8.5); Neutrophils Absolute Auto 10.1 K/mm3 (1.3-6.7); Neutrophils Percent Auto 83.3 % (45.5-73.1); Platelet Count Result 180 k/mm3 (150-375); Red Blood Count 3.26 M/mm3 (4.6-6.20); Red Cell Distribution Width 12.7 % (11.5-14.5); White Blood Count 12.1 K/mm3 (4.5-10.0)
[2021-03-07 05:29] LABS: Anion Gap 9 mmol/L (8-16); Blood Urea Nitrogen 14 mg/dL (9-20); Calcium 8.9 mg/dL (8.4-10.2); Carbon Dioxide 24 mmol/L (22-30); Chloride 94 mmol/L (98-107); Estimated CRCL calculation 86 ml/min; Estimated Glomerular Filt Rate > 60; Glucose 126 mg/dL (65-110); Potassium 4.9 mmol/L (3.4-5.0); Sodium 127 mmol/L (137-145)
[2021-03-07] MEDS: KETOROLAC 15 MG/ML VIAL (*BKC) IV PUSH (05:51)
--- NOTE | 2021-03-07 07:22 | P.PNAN_ITS ---
Anes - Prog Note Post-Op Date/Time: 03/07/21 07:22 Cardiovascular status: normal Respiratory status: normal Airway patency: baseline Mental status: baseline Post-Op hydration status: normal Vital Signs: Last Vital Signs Temp 97.8 F 03/06/21 23:33 Pulse 77 03/06/21 23:33 Resp 14 03/06/21 23:33 BP 101/72 03/06/21 23:33 Pulse Ox 97 03/06/21 23:33 Pain Score (VAS): 03/05 I/O: Intake & Output 03/06/21 03/06/21 03/07/21 15:59 23:59 07:59 Intake Total 150 100 50 Balance 150 100 50 Laboratory Tests 03/07/21 04:46 03/07/21 04:46 03/07/21 03/07/21 04:46 04:46 WBC 12.1 H RBC 3.26 L Hgb 10.5 L D Hct 30.8 L MCV 94.5 MCH 32.2 MCHC 34.1 RDW 12.7 Plt Count 180 MPV 9.1 Immature Gran % (Auto) 0.3 Neut % (Auto) 83.3 H Lymph % (Auto) 6.4 L [place] % (Auto) 9.8 H Eos % (Auto) 0.0 Baso % (Auto) 0.2 Lymph # (Auto) 0.77 L [place] # (Auto) 1.2 H Eos # (Auto) 0.0 Baso # (Auto) 0.0 Abs Immat Gran (auto) 0.04 H Absolute Neuts (auto) 10.1 H Absolute Nucleated RBC 0.0 Nucleated RBC % 0.0 Sodium 127 L Potassium 4.9 Chloride 94 L Carbon Dioxide 24 Anion Gap 9 BUN 14 Creatinine 1.00 Estim Creat Clear Calc 86 Estimated GFR > 60 Glucose 126 H Calcium 8.9 Post-procedural complaints: none Patient Feedback: Patient satisfied with anesthetic care.
[2021-03-07] MEDS: polyethylene glycoL 3350 17 GM POWD.PACK PO (09:08)
[2021-03-07] MEDS: SENNA/DOCUSATE SODIUM TABLET 2 TAB PO (09:09)
[2021-03-07] MEDS: ATORVASTATIN 40 MG TABLET PO (09:09)
[2021-03-07 09:10] VITALS: PULSE 60
[2021-03-07] MEDS: METOPROLOL SUCCINATE EXT REL 100 MG TABCR 200 MG PO (09:10)
[2021-03-07] MEDS: amLODIPine BESYLATE 5 MG TABLET PO (09:11)
[2021-03-07] MEDS: lisinopriL 20 MG TABLET PO (09:12)
[2021-03-07] MEDS: FAMOTIDINE 20 MG TABLET PO (09:12)
[2021-03-07] MEDS: GABAPENTIN 300 MG CAPSULE PO (09:13)
[2021-03-07 15:58] VITALS: BP 104/57; PULSE 96; RESP 12; TEMP 37.6; O2SAT 98
--- NOTE | 2021-03-07 16:41 | PM.PNORT ---
Progress Note: A&P Additional Plan POD 1 DOING WELL. STABLE PER PT. OK TO DC HOME F/U IN 3 WEEKS. Subjective Subjective Date/Time Seen: 03/07/21 16:41 POD 1 DING WELL. NO CALF PAIN. DOING WELL WITH PT. Exam Extrem: Other: VSS AFEBRILE DRESSING DRY NV INTACT NEG HOMANS SIGN Objective Data Vital Signs Vital Signs: Vital Signs - 24 hr 03/06/21 16:55 03/06/21 17:10 03/06/21 21:15 Temperature 37.2 C Pulse Rate 49 L 46 L Respiratory Rate 16 16 Blood Pressure 101/65 111/66 Pulse Oximetry 100 99 03/06/21 23:25 03/06/21 23:33 03/07/21 09:10 Temperature 36.6 C 36.6 C Pulse Rate 77 60 Respiratory Rate 14 Blood Pressure 101/72 Pulse Oximetry 97 03/07/21 15:58 Temperature 37.6 C Pulse Rate 96 Respiratory Rate 12 Blood Pressure 104/57 L Pulse Oximetry 98 Intake/Output Intake/Output: Intake & Output 03/04/21 03/05/21 03/06/21 03/07/21 23:59 23:59 23:59 23:59 Intake Total 250 50 Balance 250 50 Meds/Results Medications: Active Medications Generic Name Dose Route Start Last Admin Trade Name Freq PRN Reason Stop Dose Admin Acetaminophen 650 mg 03/06/21 16:24 03/06/21 21:15 Acetaminophen 325 Mg Tablet PO 650 mg Q6H PRN Administration Mild Pain (1-3) or Fever Hydrocodone Bitart/Acetaminophen 1 tab 03/06/21 16:24 03/07/21 08:23 Hydrocodone/Acetaminophen (*Crx) 7.5-325 Mg Tablet PO 1 tab Q3H PRN Administration Pain Rated 4-6 Al Hydrox/Mg Hydrox/Simethicone 30 ml 03/06/21 16:24 Mag Hydrox/Al Hydrox/Simeth 30 Ml Udc PO Q6H PRN Indigestion Amlodipine Besylate 5 mg 03/07/21 09:00 03/07/21 09:11 Amlodipine Besylate 5 Mg Tablet PO 5 mg QAM MALINI Administration Atorvastatin Calcium 40 mg 03/07/21 09:00 03/07/21 09:09 Atorvastatin 40 Mg Tablet PO 40 mg DAILY MALINI Administration Diazepam 5 mg 01/11/22 16:24 Diazepam (*Crx) 5 Mg Tablet PO Q6H PRN Anxiety/Muscle Spasm Famotidine 20 mg 03/06/21 21:00 03/07/21 09:12 Famotidine 20 Mg Tablet PO 20 mg Q12HR MALINI Administration Folic Acid/Cyanocobalamin/pyridoxin 1 tab 03/07/21 09:00 03/07/21 09:10 Cyanocobalamin/Fa/Pyridoxine (Foltx) Tablet PO 04/06/21 08:59 1 tab QAM MALINI Administration Gabapentin 300 mg 03/06/21 17:00 03/07/21 09:13 Gabapentin 300 Mg Capsule PO 300 mg BID MALINI Administration Hydroxyzine HCl 50 mg 03/06/21 16:24 Hydroxyzine Hcl 25 Mg Tablet PO Q4H PRN Itching Sodium Chloride 1,000 mls @ 125 mls/hr 03/06/21 16:24 Normal Saline Iv IV CONT .Q8H MALINI Ketorolac Tromethamine 15 mg 03/06/21 18:00 03/07/21 14:31 Ketorolac 15 Mg/Ml Vial (*Bkc) IV PUSH 03/07/21 18:01 Not Given Q6HR [facility] Lisinopril 20 mg 03/07/21 09:00 03/07/21 09:12 Lisinopril 20 Mg Tablet PO 20 mg DAILY MALINI Administration Magnesium Hydroxide 30 ml 03/06/21 16:24 Magnesium Hydroxide Susp 30 Ml Udc PO BID PRN Constipation Metoprolol Succinate 200 mg 03/07/21 09:00 03/07/21 09:10 Metoprolol Succinate Ext Rel 100 Mg Tabcr PO 200 mg QAM MALINI Administration Morphine Sulfate 3 mg 03/06/21 16:24 03/06/21 16:38 Morphine Sulfate (*Crx) 4 Mg/Ml Inj IV PUSH 3 mg Q3H PRN Administration Pain Rated 7-10 Naloxone HCl 0.1 mg 03/06/21 16:24 Naloxone Hcl 0.4 Mg/Ml Vial IV PUSH Q2M PRN Opiate Reversal Ondansetron HCl 4 mg 03/06/21 16:24 Ondansetron Inj 4 Mg/2 Ml Vial IV PUSH Q4H PRN Nausea And Vomiting Polyethylene Glycol 17 gm 03/07/21 09:00 03/07/21 09:08 Polyethylene Glycol 3350 17 Gm Powd.Pack PO 17 gm QAM MALINI Administration Rivaroxaban 10 mg 03/06/21 21:30 03/06/21 21:54 Rivaroxaban 10 Mg Tablet PO Not Given DAILY@1700 [facility] Senna/Docusate Sodium 2 tab 03/06/21 17:00 03/07/21 09:09 Senna/Docusate Sodium Tablet PO 2 tab BID [facility] Administration Radiology Results: ITS Impressions Hip X-Ray 03/07/21 07
--- NOTE | 2021-03-07 16:43 | PM.DS ---
DS: Admitting Diagnosis Discharge Date 03/07/21 Admitting Diagnosis RIGHT HIP DJD DS: Discharge Diagnosis Discharge Diagnosis (1) Degenerative joint disease (DJD) of hip: Qualifiers: Osteoarthritis type: primary Laterality: right Qualified Code(s): M16.11 - Unilateral primary osteoarthritis, right hip Code(s): M16.9 - Osteoarthritis of hip, unspecified Status: Acute DS: Summary Hospital Course Reason for hospitalization: R [place] Hospital Course: PATIENT UNDERWENT R JORGITO WITH NO COMPLICATIONS. HE WAS STABLE. HE WAS SENT TO THE ORTHO FLOOR. HE WAS TAKING GOOD PO. HIS PAIN WAS WELL CONTROLLED. ON POD 1 HE DID WELL WITH PT. HIS PAIN WAS CONTROLLED HE WAS TAKING GOOD PO INTAKE. DVT PROPHYLAXIS WAS WITH XARELTO. HE WOULD BE DCd HOME WITH HOME CARE. HE WOULD CONTINUE HIS XARELTO. HE WOULD BE ON A REGULAR DIET. HE WOULD F/U IN 3 WEEKS. Time spent discussing smoking cessation with patient: more than 10 minutes Status at Discharge Functional status at discharge: uses cane/walker Time Spent with Patient Time attestation: Total time spent providing and/or coordinating discharge services: Time spent: Less than 30 minutes DS: Data Data Completed and Pending Pending studies at discharge: Pending at discharge 03/06/21 14:28 Surgical [PTH] Routine Labs on day of discharge: Labs from last 24 hours 03/07/21 03/07/21 04:46 04:46 WBC 12.1 H RBC 3.26 L Hgb 10.5 L D Hct 30.8 L MCV 94.5 MCH 32.2 MCHC 34.1 RDW 12.7 Plt Count 180 MPV 9.1 Immature Gran % (Auto) 0.3 Neut % (Auto) 83.3 H Lymph % (Auto) 6.4 L [place] % (Auto) 9.8 H Eos % (Auto) 0.0 Baso % (Auto) 0.2 Lymph # (Auto) 0.77 L [place] # (Auto) 1.2 H Eos # (Auto) 0.0 Baso # (Auto) 0.0 Abs Immat Gran (auto) 0.04 H Absolute Neuts (auto) 10.1 H Absolute Nucleated RBC 0.0 Nucleated RBC % 0.0 Sodium 127 L Potassium 4.9 Chloride 94 L Carbon Dioxide 24 Anion Gap 9 BUN 14 Creatinine 1.00 Estim Creat Clear Calc 86 Estimated GFR > 60 Glucose 126 H Calcium 8.9 Discharge Plan Discharge Patient Disposition: Home, Self-Care Discharge Instructions: JASON AGUIRRE M.D. [facility] [address] [place] [address] POST OPERATIVE DISCHARGE INSTRUCTIONS FOLLOWING TOTAL HIP REPLACEMENT SURGERY ? Your dressing will remain in place at discharge. You will be sent home with one additional dressing to be changed in 5 days by the home health RN. - If your incision was closed with kandy, they will be removed on the 14th day after surgery and steri-strips will be placed. - If your incision was closed with dermabond, allow the dermabond to fall off naturally and do not disrupt incision healing. ? You may shower with your dressing but do not submerge in a bath tub. ? Do not drive or operate machinery until you are released by Dr. Aguirre. ? Do not walk without a walker for any reason until you are released by Dr. Aguirre. ? Continue to apply ice to the hip intermittently for additional pain relief. Protect your skin with a towel or pillow case. ? Unless otherwise instructed by Dr. Aguirre you me be weight bearing as tolerated with your walker. ? Continue to follow strict total hip replacement precautions. ? Your follow up appointment is indicated in your discharge instructions. ? Your medications have been sent to your pharmacy. ? Please contact our office with any questions/concerns regarding your hip at [phone]. Stand Alone Forms: General Discharge Instructions Follow-up/Referrals: Jason Aguirre MD [Physician] - 3 Weeks Discharge Medications: New tramadol 50 mg tablet 25 mg PO Q6H PRN (Reason: pain) Qty: 60 RF: 0 Continued gabapentin 300 mg capsule 300 mg PO BID RF: 0 lisinopril 10 mg tablet 20 mg PO DAILY RF: 0 amlodipine 5 mg tablet 5 m
== END 2021-03-07 18:37 | disposition home or self-care (01) ==
LOC: ANHSURGERY 09:50 → ANHSUROVER 03-07 16:48
PROVIDERS: PCP Family Medicine; Visit Provider Orthopaedic Surgery
PROC: (CPT 27130; principal; 2021-03-06 12:00)
DX: M16.11 Unilateral primary osteoarthritis, right hip (principal); M67.851 Other specified disorders of synovium, right hip; I42.9 Cardiomyopathy, unspecified; I10 Essential (primary) hypertension; E11.42 Type 2 diabetes mellitus with diabetic polyneuropathy; Z89.512 Acquired absence of left leg below knee; Z79.01 Long term (current) use of anticoagulants; Z87.891 Personal history of nicotine dependence
CPT/HCPCS: 27130; 36415; 73501; 80048; 85025; 88304; 88305; 97110; 97116; 97161; 97165; 97530; A9270; C1776; J0171; J0330; J0690; J1100; J1170; J1885; J2250; J2270; J2405; J2704; J2710; J2765; J2795; J3010; J7120

== ENCOUNTER 2021-04-09 08:25 | Outpatient (RCR) | payer BC, SELFPAY ==
--- NOTE | 2021-04-09 08:08 | PTOPEVAL ---
Thank you for referring Terrence Todd to [facility].? The patient is scheduled to be seen for therapy? __3__x/week for 12 visits. Please review, sign, date and return this plan of care FREDA. I agree with and certify that the following plan of care is medically necessary. Referring Physician Date Admitting Provider: Attending Provider: Jason Aguirre MD Referring Provider: *PT Outpatient Evaluation Start: 04/09/21 07:00 Freq: Status: Active Protocol: Document 04/09/21 07:00 SARITA (Rec: 04/09/21 08:07 SARITA [id number]) Therapy Assessment Status Assessment Status Assessment Status Evaluation Outpatient Past Medical History Neurological History Hx Other Neurological Disorders Yes: PERIPHERAL NEUROPATHY RT FOOT Cardiovascular History Hx Atrial Fibrillation Yes: ABLATION & CARDIOVERSIONS , LOOP RECORDER PLACED 11/2019 Hx Cardiac Arrhythmia Yes: ATRIAL FLUTTER - ABLATION 05/2015 Hx Cardiac Catheterization Yes: 2011 Hx Congestive Heart Failure Yes: 2014 Hx Hypercholesterolemia Yes Hx Hypertension Yes 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 Respiratory History Hx Respiratory Disorders No Significant History Gastrointestinal History Hx Gastrointestinal Disorders No Significant History Genitourinary History Hx Genitourinary Disorders No Significant History Musculoskeletal History Hx Amputation Yes: LT BKA - D/T OSTEOMYELITIS 07/2020- PROSTHESIS WEIGHS 2.4KG Hx Arthritis Yes: HIPS Hx Back Pain Yes: CHRONIC Hx Crutches or Walker Use Yes: AMBULATERS WITH WALKER & Query Text:If Yes, Enter Crutches, USES WHEELCHAIR AT TIMES Walker, or Both in the Comment Hx Osteomyelitis Yes: LT FOOT Hx Other Musculoskeletal Disorders Yes: BILATERAL CARPAL TUNNEL SYNDROME Hematological History Hx Hematological Disorders No Significant History Endocrine History Hx Endocrine Disorders No Significant History HEENT History Hx Other HEENT Disorders Yes: READING GLASSES Integumentary History Hx Skin Disorders No Significant History Reproductive History Hx Reproductive Disorders No Significant History Psychosocial History Hx Psychiatric Disorders No Significant History Pain History Has Past Pain Affected Your Daily Life Yes: RT HIP/BACK Anesthesia History Hx Anesthesia Reactions No Significant History Other History Hx Implanted Device Yes: LOOP RECORDER Evaluation Information Problem Diagnosis right hip JORGITO Onset 03/06/21 Subjective Information Pt. rep
--- NOTE | 2021-05-04 13:02 | PTOPEVAL ---
Thank you for referring Terrence Todd to [facility].? The patient is scheduled to be seen for therapy? ____x/week for ___ weeks. Please review, sign, date and return this plan of care FREDA. I agree with and certify that the following plan of care is medically necessary. Referring Physician Date Admitting Provider: Attending Provider: Jason Aguirre MD Referring Provider: *PT Outpatient Evaluation Start: 04/09/21 07:00 Freq: Status: Active Protocol: Document 05/04/21 10:00 [facility] (Rec: 05/04/21 13:00 [facility] [id number]) Therapy Assessment Status Assessment Status Assessment Status Re-evaluation Outpatient Past Medical History Neurological History Hx Other Neurological Disorders Yes: PERIPHERAL NEUROPATHY RT FOOT Cardiovascular History Hx Atrial Fibrillation Yes: ABLATION & CARDIOVERSIONS , LOOP RECORDER PLACED 11/2019 Hx Cardiac Arrhythmia Yes: ATRIAL FLUTTER - ABLATION 05/2015 Hx Cardiac Catheterization Yes: 2011 Hx Congestive Heart Failure Yes: 2014 Hx Hypercholesterolemia Yes Hx Hypertension Yes 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 Respiratory History Hx Respiratory Disorders No Significant History Gastrointestinal History Hx Gastrointestinal Disorders No Significant History Genitourinary History Hx Genitourinary Disorders No Significant History Musculoskeletal History Hx Amputation Yes: LT BKA - D/T OSTEOMYELITIS 07/2020- PROSTHESIS WEIGHS 2.4KG Hx Arthritis Yes: HIPS Hx Back Pain Yes: CHRONIC Hx Crutches or Walker Use Yes: AMBULATERS WITH WALKER & Query Text:If Yes, Enter Crutches, USES WHEELCHAIR AT TIMES Walker, or Both in the Comment Hx Osteomyelitis Yes: LT FOOT Hx Other Musculoskeletal Disorders Yes: BILATERAL CARPAL TUNNEL SYNDROME Hematological History Hx Hematological Disorders No Significant History Endocrine History Hx Endocrine Disorders No Significant History HEENT History Hx Other HEENT Disorders Yes: READING GLASSES Integumentary History Hx Skin Disorders No Significant History Reproductive History Hx Reproductive Disorders No Significant History Psychosocial History Hx Psychiatric Disorders No Significant History Pain History Has Past Pain Affected Your Daily Life Yes: RT HIP/BACK Anesthesia History Hx Anesthesia Reactions No Significant History Other History Hx Implanted Device Yes: LOOP RECORDER Evaluation Information Problem Diagnosis right hip JORGITO Onset 03/06/21 Subjective Information patient reports
--- NOTE | 2021-05-30 11:12 | PTOPEVAL ---
Thank you for referring Terrence Todd to [facility].? The patient is scheduled to be seen for therapy? __2__x/week for 6 visits. Please review, sign, date and return this plan of care FREDA. I agree with and certify that the following plan of care is medically necessary. Referring Physician Date Admitting Provider: Attending Provider: Jason Aguirre MD Referring Provider: *PT Outpatient Evaluation Start: 04/09/21 07:00 Freq: Status: Active Protocol: Document 05/30/21 10:18 SARITA (Rec: 05/30/21 11:12 SARITA [id number]) Therapy Assessment Status Assessment Status Assessment Status Progress Outpatient Past Medical History Neurological History Hx Other Neurological Disorders Yes: PERIPHERAL NEUROPATHY RT FOOT Cardiovascular History Hx Atrial Fibrillation Yes: ABLATION & CARDIOVERSIONS , LOOP RECORDER PLACED 11/2019 Hx Cardiac Arrhythmia Yes: ATRIAL FLUTTER - ABLATION 05/2015 Hx Cardiac Catheterization Yes: 2011 Hx Congestive Heart Failure Yes: 2014 Hx Hypercholesterolemia Yes Hx Hypertension Yes 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 Respiratory History Hx Respiratory Disorders No Significant History Gastrointestinal History Hx Gastrointestinal Disorders No Significant History Genitourinary History Hx Genitourinary Disorders No Significant History Musculoskeletal History Hx Amputation Yes: LT BKA - D/T OSTEOMYELITIS 07/2020- PROSTHESIS WEIGHS 2.4KG Hx Arthritis Yes: HIPS Hx Back Pain Yes: CHRONIC Hx Crutches or Walker Use Yes: AMBULATERS WITH WALKER & Query Text:If Yes, Enter Crutches, USES WHEELCHAIR AT TIMES Walker, or Both in the Comment Hx Osteomyelitis Yes: LT FOOT Hx Other Musculoskeletal Disorders Yes: BILATERAL CARPAL TUNNEL SYNDROME Hematological History Hx Hematological Disorders No Significant History Endocrine History Hx Endocrine Disorders No Significant History HEENT History Hx Other HEENT Disorders Yes: READING GLASSES Integumentary History Hx Skin Disorders No Significant History Reproductive History Hx Reproductive Disorders No Significant History Psychosocial History Hx Psychiatric Disorders No Significant History Pain History Has Past Pain Affected Your Daily Life Yes: RT HIP/BACK Anesthesia History Hx Anesthesia Reactions No Significant History Other History Hx Implanted Device Yes: LOOP RECORDER Evaluation Information Problem Diagnosis right hip JORGITO Onset 03/06/21 Subjective Information Pt. report
== END 2021-06-21 14:07 | disposition home or self-care (01) ==
LOC: CHSPT 08:25
PROVIDERS: Visit Provider Orthopaedic Surgery
DX: Z96.641 Presence of right artificial hip joint (principal)
CPT/HCPCS: 97110; 97112; 97116; 97161; 97530

== ENCOUNTER 2021-07-05 11:09 | Outpatient (CLI) | payer BC, SELFPAY ==
--- NOTE | ~2021-07-05 | XR_ITS ---
XR shoulder LT min 2V DATE: 07/05/2021 12:01 INDICATION: Left shoulder pain TECHNIQUE: 4 views COMPARISON: None FINDINGS: There is degenerative change at the left acromioclavicular joint. There is superior subluxa tion of the left humeral head of the clavicle joint suggesting left rotator cuff tear and/or atrophy. No fracture or dislocation, periosteal reaction or bone destruction or abnormal soft tissue calcifica tion. Electronic monitoring device overlying left chest. IMPRESSION: Left rotator cuff atrophy or tear Degenerative change at the left acromioclavicular joint Reviewed, dictated and finalized at location B.
--- NOTE | ~2021-07-05 | XR_ITS ---
XR lumbar spine min 4V DATE: 07/05/2021 12:01 INDICATION: Low back pain. No injury. TECHNIQUE: AP, lateral, bilateral oblique views and coned lateral lumbosacral view COMPARISON: None FINDINGS: There is osteopenia. There is loss of lumbar lordosis. There is very slight dextroscoliosis. There is very severe degenerative disc disease at L2-3 through L5-S1. This includes severe disc space loss of height, vacuum phenomenon and prominent degenerative spurring, including prominent bridging osteophytes. The included lower thoracic and lumbar pedicles are intact. No fracture or bone destruction, spondylo lysis or spondylolisthesis is evident. The sacroiliac joints are intact. Right total hip arthroplasty. IMPRESSION: Osteopenia Loss of lumbar lordosis, slight dextroscoliosis Severe degenerative disc disease from L2-3 through L5-S1 Right total hip arthroplasty Reviewed, dictated and finalized at location B.
--- NOTE | ~2021-07-05 | XR_ITS ---
XR shoulder RT min 2V DATE: 07/05/2021 12:01 INDICATION: Right shoulder pain TECHNIQUE: 4 views COMPARISON: None FINDINGS: There is prominent joint space narrowing and spurring at the acromioclavicular joint. There is moderate osteophytic change of the right glenohumeral joint. There is superior subluxation of the humeral head suggesting right rotator cuff tear or atrophy. No a bnormal soft tissue calcification of the right shoulder is evident. No fracture, dislocation, periosteal reaction or bone destruction. Diffuse idiopathic skeletal hyperostosis of the thoracic spine. IMPRESSION: Degenerative change at right acromioclavicular joint Osteoarthritis at right glenohumeral joint Rotator cuff tear or atrophy Reviewed, dictated and finalized at location B.
== END 2021-07-05 11:10 | disposition home or self-care (01) ==
PROVIDERS: PCP Family Medicine; Visit Provider Physician Assistant
DX: M85.88 Other specified disorders of bone density and structure, other site (principal); M51.36 Other intervertebral disc degeneration, lumbar region; M51.37 Other intervertebral disc degeneration, lumbosacral region; M19.012 Primary osteoarthritis, left shoulder; M19.011 Primary osteoarthritis, right shoulder
CPT/HCPCS: 72110; 73030

== ENCOUNTER 2021-07-09 02:08 | Day surgery (SDC) | payer BC, SELFPAY ==
[2021-07-04 13:35] VITALS: BMI 28.5
[2021-07-09 07:36] VITALS: BP 144/84; PULSE 80; RESP 20; TEMP 35.7; O2SAT 100; BMI 27.1
[2021-07-09] MEDS: LACTATED RINGERS 1,000 ML 150 ML IV CONT (07:52)
--- NOTE | 2021-07-09 07:56 | WPDANESEPPF ---
Anes - Initial Pre Proc Eval Procedure: Operation Date: 07/09/21 08:30 Proposed Procedures p Screening Colonoscopy - Paco Ortiz MD Date/Time: 07/09/21 07:56 Surgeon: Paco Ortiz MD Pre Op Diagnosis: neoplasm screening Patient Data Age: 61 Gender: M Height: 1.88 m Weight: 95.7 kg Last Vital Signs Temp 96.2 F L 07/09/21 07:36 Pulse 80 07/09/21 07:36 Resp 20 07/09/21 07:36 BP 144/84 H 07/09/21 07:36 Pulse Ox 100 07/09/21 07:36 Allergies Allergy/AdvReac Type Severity Reaction Status Date / Time No Known Allergies Allergy Verified 07/09/21 07:35 Home Medications Medication Instructions Recorded Confirmed Type rivaroxaban 20 mg tablet 20 mg PO QPM 01/06/19 07/04/21 History gabapentin 300 mg capsule 300 mg PO BID 10/25/20 07/04/21 History atorvastatin 40 mg tablet 40 mg PO DAILY 02/01/21 07/04/21 History milk thistle 500 mg capsule 500 mg PO DAILY 02/01/21 07/04/21 History metoprolol succinate 200 mg PO QAM 02/22/21 07/04/21 History acetaminophen 650 mg 650 mg PO Q8H 05/15/21 07/04/21 History tablet,extended release senna-docusate sodium tablet 1 tablet PO BID 05/15/21 07/04/21 History verapamil 120 mg 24 hr 120 mg PO HS 05/15/21 07/04/21 History capsule,extended release tramadol 50 mg tablet 25 mg PO Q6H PRN #60 tablet 06/18/21 07/04/21 Rx cyanocobalamin (vitamin B-12) 500 mcg PO DAILY 07/04/21 07/04/21 History lisinopril 20 mg PO BID 07/04/21 07/04/21 History Patient hx anesthesia problems: none Family hx anesthesia problems: none Results Review: All pre-operative results and documents have been reviewed as part of the pre-operative evaluation. 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 Ulcer of left foot due to type 2 diabetes mellitus Surgical History Surgical History S/P ablation of atrial fibrillation Family History Family History Father Hypertension Carcinoma of colon Mother Hypertension Other Cerebrovascular accident Social History Social History (Updated 06/25/21 @ 11:09 by Alexa Monet MA) Smoking packs per day: 1.5 Smoking cigarettes per day: 30.0 Years smoked: 18 Smoking pack-years: 27.00 Smoking status: Former smoker Tobacco type: cigarettes Second hand tobacco smoke exposure: Yes Smoking end date: 02/24/05 Additional smoking assessment comments: PT DENIES ALL FORMS OF TOBACCO USE Alcohol intake: current Drinks per week: 6 Alcohol use details: BEERS Substance use: never Substance use type: does not use Living arrangements: with family Gender identity (if verbalized by the patient): Male Spiritual care concerns: No Agree to blood products: Yes Anes - Eval Final PreProcedure Day of Procedure 07/09/21 07:56 Patient weight: overweight Heart: irregular rhythm Lungs: clear to auscultation Airway: Mallampati scale class III Neurological: alert and oriented Last oral intake: >/= 8 hours ASA classification: III Emergent: no Anesthetic plan: proceed Anesthesia type and monitoring: general GIVS and standard monitoring Results Review: All pre-operative results and documents have been reviewed as part of the pre-operative evaluation. Informed Consent: The patient's anesthetic plan and its attendant risks and benefits were discussed with the patient/family/POA. Questions were solicited and answers provided
--- NOTE | 2021-07-09 07:58 | PM.HPGS ---
History of Present Illness History of Present Illness Consent: Risks, benefits, and alternatives have been discussed and questions answered. Patient agrees to proceed with procedure. Chief complaint: neoplasm screening Narrative: Terrence Todd is a 61 year old male here for first screening colonoscopy Review of Systems Constitutional: Constitutional: Denies headache(s) and Denies weakness Eyes: Eyes: Denies blurry vision ENT: Reports Normal hearing present, Denies headache(s) and Denies neck pain Cardiovascular: Cardiovascular: Denies chest pain and Denies dyspnea Respiratory: Respiratory: Denies dyspnea Gastrointestinal: Gastrointestinal: Reports no additional gastrointestinal complaints Genitourinary: Genitourinary: Denies dysuria Musculoskeletal: Musculoskeletal: Denies neck pain Integumentary/Breasts: Skin/Breast: Denies dry skin Neurologic: Reports Normal hearing present, Denies headache(s) and Denies weakness Psychiatric: Psychiatric: Denies anxiety Endocrine: Endocrine: Denies change in body appearance Hematologic/Lymphatic: Hematologic/Lymphatic: Denies easy bleeding Allergic/Immunologic: Allergic/Immunologic: Denies urticaria [facility] Past Medical History Medical History (Updated 07/09/21 @ 07:58 by Paco Ortiz MD) Arthritis of right hip Atrial fibrillation and flutter Bilateral hip joint arthritis BMI 31.0-31.9,adult Colon cancer screening Cubital tunnel syndrome of both upper extremities Erectile dysfunction History of left below knee amputation History of left below knee amputation Hypertension Iron deficiency Neuropathy, peripheral, autonomic, idiopathic Non-healing ulcer of left foot Sequestrum of valgus deformity of left ankle Ulcer of left foot due to type 2 diabetes mellitus Surgical History Surgical History S/P ablation of atrial fibrillation Family History Family History Father Hypertension Carcinoma of colon Mother Hypertension Other Cerebrovascular accident Social History Social History (Updated 06/25/21 @ 11:09 by Alexa Monet MA) Smoking packs per day: 1.5 Smoking cigarettes per day: 30.0 Years smoked: 18 Smoking pack-years: 27.00 Smoking status: Former smoker Tobacco type: cigarettes Second hand tobacco smoke exposure: Yes Smoking end date: 02/24/05 Additional smoking assessment comments: PT DENIES ALL FORMS OF TOBACCO USE Alcohol intake: current Drinks per week: 6 Alcohol use details: DAVION Substance use: never Substance use type: does not use Living arrangements: with family Gender identity (if verbalized by the patient): Male Spiritual care concerns: No Agree to blood products: Yes Meds Home Medications and Allergies Home Medications Medication Instructions Recorded Confirmed Type rivaroxaban 20 mg tablet 20 mg PO QPM 01/06/19 07/04/21 History gabapentin 300 mg capsule 300 mg PO BID 10/25/20 07/04/21 History atorvastatin 40 mg tablet 40 mg PO DAILY 02/01/21 07/04/21 History milk thistle 500 mg capsule 500 mg PO DAILY 02/01/21 07/04/21 History metoprolol succinate 200 mg PO QAM 02/22/21 07/04/21 History acetaminophen 650 mg 650 mg PO Q8H 05/15/21 07/04/21 History tablet,extended release senna-docusate sodium tablet 1 tablet PO BID 05/15/21 07/04/21 History verapamil 120 mg 24 hr 120 mg PO HS 05/15/21 07/04/21 History capsule,extended release tramadol 50 mg tablet 25 mg PO Q6H PRN #60 tablet 06/18/21 07/04/21 Rx cyanocobalamin (vitamin B-12) 500 mcg PO DAILY 07/04/21 07/04/21 History lisinopril 20 mg PO BID 07/04/21 07/04/21 History Allergies Allergy/AdvReac Type Severity Reaction Status Date / Time No Known Allergies Allergy Verified 07/09/21 07:35 Vital Signs Vital Signs - 24 hr 07/09/21 07:36 Temperature 96.2 F L Pulse Rate 80 Respiratory Rate 2
[2021-07-09 08:26] VITALS: BP 126/84; PULSE 112; RESP 25; O2SAT 99
[2021-07-09 08:36] VITALS: BP 147/87; PULSE 101; RESP 24; O2SAT 98
[2021-07-09 08:46] VITALS: BP 152/108; PULSE 97; RESP 22; O2SAT 97
== END 2021-07-09 09:01 | disposition home or self-care (01) ==
PROVIDERS: PCP Family Medicine; Visit Provider Internal Medicine Gastroenterology
PROC: 0DJD8ZZ Inspection of Lower Intestinal Tract, Via Natural or Artificial Opening Endoscopic (ICD-10-PCS; CPT 45378; principal; 2021-07-09 08:30)
DX: Z12.11 Encounter for screening for malignant neoplasm of colon (principal); D12.0 Benign neoplasm of cecum; D12.5 Benign neoplasm of sigmoid colon; I10 Essential (primary) hypertension; I48.91 Unspecified atrial fibrillation; E11.42 Type 2 diabetes mellitus with diabetic polyneuropathy; Z79.01 Long term (current) use of anticoagulants; Z87.891 Personal history of nicotine dependence
CPT/HCPCS: 45385; 88305; J2704; J7120

== ENCOUNTER 2022-08-14 10:36 | Outpatient (CLI) | payer MEDICARE, SELFPAY ==
--- NOTE | ~2022-08-14 | MR_ITS ---
MRI of the lumbar spine Clinical History: Degenerative disc disease Technique: Axial T2-weighted images, and sagittal T1-weighted, T2-weighted, and T2 fat-sat images wer e acquired. Findings: No fracture seen. 2 mm retrolisthesis of L3 over L4 present. No suspicious bone marrow sign al abnormality seen. At L1-L2, there is no disc bulge or herniation. There is mild to moderate facet arthropathy. No spina l canal stenosis or neural foraminal narrowing. At L2-L3, there is severe degenerative disc narrowing with minimal disc bulge. There is mild facet ar thropathy. No central canal stenosis. There is mild left neural foraminal narrowing. Right neural for amen preserved. At L3-L4, there is severe degenerative disc narrowing. There is mild disc bulge with mild facet arthr opathy. No vida central canal stenosis. There is moderate to severe left neural foraminal narrowing. Right neural foramen preserved. At L4-L5, there is advanced degenerative disc narrowing. There is mild facet arthropathy. No spinal c anal stenosis. There is mild bilateral neural foraminal narrowing. At L5-S1, there is mild disc bulge and mild to moderate facet arthropathy. No spinal canal stenosis. There is moderate bilateral neural foraminal narrowing. Paravertebral soft tissues are unremarkable. Impression: Multilevel neural foraminal narrowing and degenerative disc narrowing and lumbar spine, as detailed a john. 2 mm retrolisthesis of L3 over L4. Reviewed, dictated and finalized at [facility]. Impression: Multilevel neural foraminal narrowing and degenerative disc narrowing and lumba r spine, as detailed above. 2 mm retrolisthesis of L3 over L4.
== END 2022-08-14 10:37 | disposition home or self-care (01) ==
PROVIDERS: PCP Family Medicine; Visit Provider Physical Medicine & Rehabilitation
DX: M50.30 Other cervical disc degeneration, unspecified cervical region (principal)
CPT/HCPCS: 72148

== ENCOUNTER 2022-11-27 10:30 | Outpatient (CLI) | payer MEDICARE, SELFPAY ==
--- NOTE | ~2022-11-27 | XR_ITS ---
XR thoracic spine 2V DATE: 11/27/2022 10:48 INDICATION: Right thoracic pain TECHNIQUE: AP, lateral, swimmer views COMPARISON: None FINDINGS: There is diffuse idiopathic skeletal hyperostosis of the thoracic spine. The thoracic pedicles are intact. No fracture or dislocation or bone destruction is detected. No para spinal soft tissue thickening. There is mild anterolisthesis at C4-5. There is multilevel degenerative disc disease of the cervical spine, including C3-4 and particularly C5-6 and C6-7. Severe degenerative disc disease in the upper lumbar spine. IMPRESSION: Diffuse idiopathic skeletal hyperostosis of the thoracic spine Prominent cervical spondylosis and upper lumbar severe degenerative disc disease Reviewed, dictated and finalized at location B. IMPRESSION: Diffuse idiopathic skeletal hyperostosis of the thoracic spine Prominent cervical spondylosis and upper lumbar severe degenerative disc diseas e
== END 2022-11-27 10:31 | disposition home or self-care (01) ==
LOC: ANHIMG 10:33
PROVIDERS: PCP Family Medicine; Visit Provider Family Medicine
DX: M54.14 Radiculopathy, thoracic region (principal); M47.892 Other spondylosis, cervical region; M48.14 Ankylosing hyperostosis [Forestier], thoracic region
CPT/HCPCS: 72070

== ENCOUNTER 2022-12-18 10:01 | Outpatient (CLI) | payer MEDICARE, SELFPAY ==
[2022-12-18 10:17] LABS: Basophils Absolute Auto 0.1 K/mm3 (0.0-0.1); Basophils Percent Auto 0.8 % (0.2-1.2); Eosinophils Absolute Auto 0.1 K/mm3 (0-0.3); Eosinophils Percent Auto 1.4 % (0-4.4); Hematocrit 39.2 % (42.0-52.0); Hemoglobin 13.6 g/dL (14.0-18.0); Immature Granulocyte Absolute 0.02 K/mm3 (0.00-0.031); Immature Granulocyte Percent A 0.3 % (0-0.5); Lymphocytes Absolute Auto 1.22 K/mm3 (0.9-3.2); Lymphocytes Percent Auto 20.6 % (18.3-44.2); Mean Corpuscular HGB Conc 34.7 g/dl (32-36); Mean Corpuscular Hemoglobin 33.7 pg (26-34); Mean Corpuscular Volume 97.3 fl (80-100); Mean Platelet Volume 8.7 fl (7.4-10.4); Monocytes Absolute Auto 0.8 K/mm3 (0.1-0.6); Neutrophils Absolute Auto 3.8 K/mm3 (1.3-6.7); Neutrophils Percent Auto 63.9 % (45.5-73.1); Platelet Count Result 176 k/mm3 (150-375); Red Blood Count 4.03 M/mm3 (4.6-6.20); Red Cell Distribution Width 12.4 % (11.5-14.5); White Blood Count 5.9 K/mm3 (4.5-10.0)
[2022-12-18 12:17] LABS: Potassium 4.6 mmol/L (3.4-5.0)
[2022-12-18 12:23] LABS: Immunoglobulin A 305 mg/dL (70-400); Immunoglobulin G 1213 mg/dL (700-1600); Immunoglobulin M 189 mg/dL (40-230)
[2022-12-18 12:47] LABS: Alanine Aminotransferase 63 U/L (6-50); Albumin Level 4.4 g/dL (3.5-5.1); Alkaline Phosphatase 48 U/L (38-126); Anion Gap 9 mmol/L (8-16); Aspartate Amino Transferase 57 U/L (17-59); Bilirubin,Total 0.6 mg/dL (0.2-1.3); Blood Urea Nitrogen 11 mg/dL (9-20); Calcium 9.3 mg/dL (8.4-10.2); Carbon Dioxide 27 mmol/L (22-30); Chloride 94 mmol/L (98-107); Estimated Glomerular Filt Rate > 60; Glucose 86 mg/dL (65-110); Sodium 130 mmol/L (137-145)
[2022-12-21 19:46] LABS: Albumin 4.2 g/dL (3.8-4.8); Alpha 1 Globulin 0.3 g/dL (0.2-0.3); Alpha 2 Globulin 0.7 g/dL (0.5-0.9); Beta 1 Globulin 0.5 g/dL (0.4-0.6); Gamma Globulin 1.3 g/dL (0.8-1.7); Protein, Total 7.2 g/dL (6.1-8.1)
[2022-12-21 20:47] LABS: Kappa\\Lambda Light Chains 1.52 (0.26-1.65); Lambda Light Chain 14.7 mg/L (5.7-26.3)
== END 2022-12-18 10:02 | disposition home or self-care (01) ==
LOC: ANHLAB 10:02
PROVIDERS: PCP Family Medicine; Visit Provider Internal Medicine Hematology & Oncology
DX: D72.9 Disorder of white blood cells, unspecified (principal)
CPT/HCPCS: 36415; 80053; 82784; 83883; 84155; 84165; 85025

== ENCOUNTER 2023-01-09 09:58 | Outpatient (CLI) | payer MEDICARE, SELFPAY ==
--- NOTE | ~2023-01-09 | XR_ITS ---
XR lumbar spine min 4V DATE: 01/09/2023 10:37 INDICATION: Back pain for 3 years TECHNIQUE: Standing AP, lateral, coned lateral lumbosacral views. Flexion and extension standing late ral views. COMPARISON: 08/14/2022 MR lumbar spine 07/05/2021 lumbar spine FINDINGS: There are prominent bridging osteophytes in the right lower thoracic and the lumbar spine i ncluding prominent bridging osteophytes on the left particularly at L1-2, L2-3, L3-4. There is virtual obliteration of disc space with [id number] between the second and third lumbar ramón tebral bodies, with prominent degenerative spurring as well. There is severe degenerative disc disease including severe loss of interspace height, vacuum phenomen on, eburnation and degenerative spurring at L3-4 in addition to severe degenerative disc disease at L 4-5 and L5-S1. No fracture or spondylolisthesis. No bone destruction is detected. The lumbar pedicles are intact. No instability on flexion or extension. The sacroiliac joints are intact. Status post right total hip arthroplasty IMPRESSION: Severe lumbar spondylosis Reviewed, dictated and finalized at location L. PER IMPRESSION: Severe lumbar spondylosis
== END 2023-01-09 09:59 | disposition home or self-care (01) ==
PROVIDERS: PCP Family Medicine; Visit Provider Neurological Surgery
DX: M47.816 Spondylosis without myelopathy or radiculopathy, lumbar region (principal)
CPT/HCPCS: 72110

== ENCOUNTER 2023-02-10 11:06 | Outpatient (RCR) | payer MEDICARE, SELFPAY ==
--- NOTE | 2023-02-10 17:46 | PTOPEVAL1 ---
Assessment and note entered by Darvin Danielson Evaluation Information Assessment Status Evaluation Diagnosis low back pain Onset 01/09/23 Subjective Information Pt. reports that he has had on/off back pain for years. He states that all pain is located across the low back. He reports that pain is increased with standing and walking. He reports that he can sit with only slight pain. He reports that he can only stand for 15-20 minutes before having to sit due to pain. He reports that pain will occasional wake him at night. He reports that he is currently using a cane to walk. He states that his goal is to decrease his back pain. Reported Pain Level Pain Score 4: Self Report Assessment PT Clinical Summary Pt. is a 62 year old male who enters the clinic with low back pain. He presents with impaired postural awareness, impaired gait, impaired l.e. strength, impaired flexibility and pain. Continued skilled PT is indicated in order to improve these areas to allow the pt. to be able to participate in all IADL's without limitation. Plan of Care Interventions Electrical Stimulation,Gait Training,Hot Pack/Cold Pack,Manual Therapy,Neuro Re-education,Patient/ Caregiver Educati,Therapeutic Activities, Therapeutic Exercise PT Services Indicated Yes Treatment Frequency and 2x/week x 10 visits Duration These treatments will address the objective and functional deficits as defined above. The patient will be advanced safely and appropriately in order for the patient to progress towards his/her prior level of function. Additional exercises will be introduced and as well as a comprehensive home exercise program upon discharge, if needed, ?to ensure carryover of functional gains achieved in the clinic. This treatment plan has been reviewed and agreement upon by the patient.
--- NOTE | 2023-03-21 12:32 | OPREHPOC ---
Outpatient Therapy Plan of Care This is a Multidisciplinary Plan of Care that may contain components documented by all disciplines (PT, OT, and ST.) PT Problem 1 PT Problem #1 Knowledge Deficit PT Goal 1 Goal Pt. will be independent with a HEP addressing trunk mobility Target Visit 2 Progress Met PT Problem 2 PT Problem #2 Impaired Flexibility PT Goal 1 Goal Pt. will present at 20 degrees from full knee extension with the 90/90 test on both right and left. Target Visit 5 Progress Not Met PT Problem 3 PT Problem #3 Impaired Functional Mobil PT Goal 1 Goal Pt. will demonstrate less than 35% limitaiton on the Oswestry indicating improved overall function Target Visit 10 Progress Not Met PT Goal 2 Goal Pt. will provide subjective reports of being able to stand for 1-2 hours with 3/10 pain at worst. Target Visit 10 Progress Not Met PT Problem 4 PT Problem #4 Impaired Strength PT Goal 1 Goal Pt. will demonstrate good- lower and oblique abdominal strength to improve standing endurance and posture. Target Visit 10 Progress Not Met
--- NOTE | 2023-03-21 12:32 | PTOPDC ---
Assessment and note entered by JT File, PT Evaluation Information Assessment Status Discharge Diagnosis low back pain Onset 01/09/23 Subjective Information patient reports he feels he is at a stand still with his rehab of his back. he reports he continues to have pain in the back that is a 5/10 today. he reports he saw the neurosurgeon yesterday who is suggesting surgery on the lumbar spine. he reports he is diligent with his exercises at home. Reported Pain Level Pain Score 5: Self Report Assessment PT Clinical Summary mr. lee presents to skilled PT services for his 10th skilled therapy visit for low back pain. he has met goal for HEP, but has not met any other PT goals. he will DC skilled PT this date due to a lack of significant progress made, and continue with HEP independent. patient plans to continue to follow up with MD, and is considering surgery on the lower back. Plan of Care PT Services Indicated Yes
== END 2023-03-21 14:12 | disposition home or self-care (01) ==
LOC: CHSPT 11:06
PROVIDERS: Visit Provider Neurological Surgery
DX: M54.50 Low back pain, unspecified (principal)
CPT/HCPCS: 97014; 97110; 97112; 97140; 97150; 97161; G0283

== ENCOUNTER 2024-09-03 10:44 | Outpatient (CLI) | payer MEDICARE, SELFPAY ==
--- NOTE | ~2024-09-03 | XR_ITS ---
Right Knee Technique: AP, lateral, and sunrise views were obtained. Clinical History: Pain Findings: No fracture or dislocation is seen. Osseous alignment is anatomic. There is mild degenerati ve spurring of the patella. Posterior loose bodies are present, largest measuring 1.6 cm in diameter. . No joint effusion is seen. Impression: Posterior loose bodies, as detailed above. Reviewed, dictated and finalized at location M. Impression: Posterior loose bodies, as detailed above.
--- OUTSIDE RECORDS SUMMARY | 2024-09-03 10:55 | XMS_ITS | Clinical Summary ---
Author Organization [facility] Address [address] [place] [id number] Care Team Providers Care Conveyor Monitor Name Role Phone Unavailable Primary Care Provider Unavailabl e Social History Tobacco Use Types Packs/Day Years Used Date Smoking Tobacco: Never Assessed Sex and Gender Information Value Date Recorded Sex Assigned at Not on file Legal Sex Male 11:01 PM CDT Gender Identity Not on file Sexual Orientation Not on file Plan of Treatment Health Maintenance Due Date Last Done Comments Colorectal Cancer Screening Colonoscopy (10 Years) 1960 Annual Physical 06/06/1963 Hepatitis C 1978 DTaP, Tdap and Td Vaccines ( 1 - Tdap) 06/06/1979 Pneumococcal Vaccine: 50+ Ye ars (1 of 1 - PCV) 2010 Zoster Vaccines (1 of 2) 2010 COVID-19 Vaccine ( - 2023-2 5 season) 2023 RSV Immunization or 60+ Years (1 - 1-dose 75+ series) 06/06/2035 Meningococcal B Vaccine Aged Out No l onger eligible based on patient's age to complete this topic Meningococcal Vaccine Aged Out No fátima luz marina eligible based on patient's age to complete this topic RSV Immunizations Under 20 Months Aged Out No longer eligible based on patient's age to complete this topic
--- OUTSIDE RECORDS SUMMARY | 2024-09-03 10:55 | XMS_ITS | Referral Summary ---
Author Organization [facility] [place] [address] [facility] [address] Address [address] [place] [address] Care Team Providers Care It Business Systems Analyst Name Role Phone Kristal Jensen HEARING SCREENER Unavailable [phone] Crystal Khan MD Primary Care Provider [phone] Encounters Date Type Department Care Team Description 07/23/2024 9:00 AM CDT Office Visit [facility] Cardiology at [address] [place] [address] Darvin Contreras MD Chronic combined systolic and diastolic heart failure (HCC) (Primary Dx); Paroxysmal atrial fibrillation (HCC); Permanent atrial fibrillation (HCC); S/P ablation of atrial fibrillation from Last 3 Months Allergies Active Allergy Reactions Criticality Noted Date Comments Latex Rash Medium 12/18/2022 Poison Sandra Extract Rash Medium 08/30/2021 Medications senna-docusate (PERICOLACE) 8.6-50 mg Take 2 tablets by mouth 2 (two) times a day Active Additional Information Patient not taking.Informant: Self, Reported on 07/23/2024 cyanocobalamin (Vitamin B-12) 500 mcg tabletIndication s:Prevention of Vitamin B12 Deficiency Take 1 tablet (500 mcg total) by mouth 2 (two) times a day Active milk thistle 500 mg capsuleIndicatio ns:Liver support Take 1 capsule by mouth 2 (two) times a day Active acetaminophen ER (TYLENOL) 650 mg 8 hr tablet Take 1 tablet (650 mg total) by mouth every 8 (eight) hours as needed for pain Active traMADoL (ULTRAM) 50 mg tablet Take 0.5 tablets (25 mg total) by mouth every 8 (eight) hours as needed for pain 20 tablet 2 Active gabapentin (NEURONTIN) 300 mg capsuleIndicatio ns:Status post below-knee amputation of left lower extremity (HCC) TAKE 1 CAPSULE BY MOUTH 3 TIMES DAILY 300 capsule 2 2 Active ferrous sulfate 134 mg (27 mg of elemental iron) tabletIndication s:Iron Deficiency Anemia Take 1 tablet (134 mg total) by mouth daily with breakfast Active Xarelto 20 mg tablet TAKE 1 TABLET BY MOUTH DAILY WITH DINNER 100 tablet 2 4 Active verapamil SR (CALAN SR) 240 mg CR tabletIndication s:Atrial fibrillation, unspecified type (HCC) TAKE 1 TABLET BY MOUTH AT NIGHT 100 tablet 2 4 Active atorvastatin (LIPITOR) 40 mg tablet TAKE 1 TABLET BY MOUTH DAILY 100 tablet 2 5 Active metoprolol XL (TOPROL-XL) 200 mg extended release tablet TAKE 1 TABLET BY MOUTH ONCE DAILY 100 tablet 2 5 Active lisinopriL (PRINIVIL,ZESTRI L) 20 mg tablet TAKE 1 TABLET BY MOUTH TWICE DAILY 200 tablet 1 5 Active Active Problems Problem Noted Date Diagnosed Date Coronary artery calcification seen on CAT scan 0 11/22/2022 Status post below-knee amputation of left lower extremity 08/21/2020 Status post placement of implantable loop record er 12/06/2019 Overview (09/26/2023): AmeristreamroniTonchidot Biomonitor III-ILR. Dx; Afib/Aflutter, CM, AF/AFL Ablation. DOI 12/02/2019-[facility]. AmeristreamroniTonchidot remote home monitoring Q3 months per patient request. S/P ablation of atrial fibrillation 11/23/2019 Liver disease 10/02/2018 Dilated cardiomyopathy 03/29/2018 S/P ablation of atrial flutter 03/25/2018 Overweight 03/25/2018 Mixed hyperlipidemia 03/10/2017 Assessment & Plan (03/10/2017 5:52 PM ELECTROCARDIOGRAPH OPERATOR): POC lipids today: Total cholesterol 249, LDL 111, TG 247, HDL 88. I calculated his 10 year risk of cardiovascular events and was only 6%, so that indicates there may not be great benefit to statin therapy at this time. Atypical atrial flutter 01/21/2017 Assessment & Plan (03/10/2017 5:49 PM ELECTROCARDIOGRAPH OPERATOR): Post ablation in May [address] Marie. I explained to the patient that atrial flutter and atrial fibrillation were similar but not the same arrhythmia; we have not seen any recurrence of atrial flutter.. Assessment & Plan (01/28/2017 6:25 PM ELECTROCARDIOGRAPH OPERATOR): History of atrial flutter, status post ablation by Dr. Marie May 2015. Assessment & Plan (01/21/2017 11:07 AM ELECTROCARDIOGRAPH OPERATOR): Post ablation in May 2015. Clockwise isthmus dependent. Hyponatremia 09/12/2015 Overview (05/31/2016): Hyponatremia Paroxysmal atrial fibrillation 05/02/2015 Overview (05/31/2016): PAF (paroxysmal atrial fibrillation) Assessment & Plan (03/10/2017 5:47 PM ELECTROCARDIOGRAPH OPERATOR): Patient has recurrent atrial fibrillation which occurred a week or so after his cardioversion December 24, 2016. He had only been on amiodarone for about a week- 10 days. had 2nd cardioversion on February 18 and is maintaining NSR clinically. Thinks he feels a little better. I would like him to consider the AFib ablation but he is reluctant to pursue this. I do not want to keep him on amiodarone for a long time if I can avoid it. He is not a good candidate for other antiarrhythmics but Multaq may be an option. Assessment & Plan (01/28/2017 6:23 PM ELECTROCARDIOGRAPH OPERATOR): Patient has recurrent atrial fibrillation which occurred a week or so after his cardioversion December 24, 2016. He had only been on amiodarone for about a week- 10 days. When initially discovered, he had been feeling poorly at times. Somewhat difficult to determine if he is symptomatic or not from his AFib. Currently heart rate is controlled and doing well with anticoagulation. Reviewed extensively atrial fibrillation with patient, causes in treatments. Discussed different courses of treatment: 1. Continue rate control and anticoagulation strategy, although eventually I would like to change amiodarone (which was chosen because of patient's severe left ventricular dysfunction) to a different anti rhythmic assuming left ventricular function continues to improve. 2. Repeat cardioversion now that the patient has been on amiodarone for a longer period of time; he may maintain sinus rhythm for while and we can determine if he feels better not. 3. Pursue AFib ablation if week can show patient can return to sinus rhythm Patient is not sure which direction to head. I recommended cardioversion followed by ablation.. Chronic systolic heart failure 04/07/2015 Overview (05/31/2016): Chronic systolic CHF (congestive heart failure) Chronic combined systolic and diastolic heart fa ilure 04/07/2015 Overview (05/31/2016): Chronic combined systolic and diastolic CHF (congestive heart failure) Essential hypertension 03/01/2015 Overview (05/31/2016): Essential hypertension Assessment & Plan (03/10/2017 5:53 PM ELECTROCARDIOGRAPH OPERATOR): Hypertension is not at goal today. However the patient had a presyncopal episode recently and I do not want to change his meds at this time since he has poor p.o. intake. Assessment & Plan (01/28/2017 6:25 PM ELECTROCARDIOGRAPH OPERATOR): Hypertension is still not at goal. Chronic anticoagulation 03/01/2015 Overview (05/31/2016): Chronic anticoagulation Assessment & Plan (03/10/2017 5:50 PM ELECTROCARDIOGRAPH OPERATOR): Tolerating Xarelto, no bleeding. Assessment & Plan (01/28/2017 6:22 PM ELECTROCARDIOGRAPH OPERATOR): Tolerating Xarelto, has not missed any doses Assessment & Plan (01/21/2017 11:06 AM ELECTROCARDIOGRAPH OPERATOR): He was recently restarted on Xarelto 20 mg daily. He denies missing any doses within the past 3 weeks. He denies any issues with bleeding or bruising and is tolerating well. Permanent atrial fibrillation 03/01/2015 Overview (05/31/2016): Atrial fibrillation, new onset Assessment & Plan (01/21/2017 11:09 AM ELECTROCARDIOGRAPH OPERATOR): History of ablation of clockwise isthmus dependent flutter in May 2015. Also with a history of atrial fibrillation. He also has a history of early recurrence after cardioversion. In the past he had maintained sinus rhythm and after his atrial flutter ablation his amiodarone was discontinued. He presents today and is noted to be in atrial fibrillation with controlled ventricular response. He also has a history of tachycardia mediated cardiomyopathy with normalization of his LV function in August 2015. Recent echocardiogram done in November of 2016 demonstrates an EF of 35%. He also had stress testing done at that time which demonstrated normal perfusion and no reversibility. Have discussed options for management with the patient. His amiodarone was recently restarted. Because of his recent decline in his LV function will continue his amiodarone 400 mg a day at this time and plan for cardioversion. Can also discuss catheter ablation as well. Patient is agreeable to the above plan. He was also counseled to discontinue alcohol. If his EF would improve after the maintenance of sinus rhythm could consider change in antiarrhythmic drug therapy as well. He can follow up 1 month post cardioversion. Alcohol abuse 03/01/2015 Overview (05/31/2016): Alcohol abuse Impaired functional mobility, balance, gait, and endurance Phantom limb syndrome with pain Resolved Problems Problem Noted Date Diagnosed Date Resolved Date Left leg pain 08/29/2021 10/15/2021 Overview (08/29/2021): Added automatically from request for surgery [id number] Ankle deformity, left 08/21/20202021 Ankle fracture, left, closed , with nonunion, subsequent encounter 06/26/2020 10/15/2021 Visit for wound check 12/09/20192021 History of amiodarone therapy 10/29/2018 11/23/2019 Pre-operative cardiovascular examination 03/25/2018 10/15/2021 Nausea 03/10/2017 11/23/2019 Assessment & Plan (03/10/2017 5:50 PM ELECTROCARDIOGRAPH OPERATOR): Perhaps due to a virus but the amiodarone at 600 mg a day may be contributing. On amiodarone therapy 01/21/20172021 Assessment & Plan (01/28/2017 6:23 PM ELECTROCARDIOGRAPH OPERATOR): Use of amiodarone was reviewed with the patient including the risks and benefits of drug treatment. Some of the risks include: Liver disease, lung disease, thyroid disease, eye problems, sun sensitivity, among others. Periodic monitoring for side effects was reviewed. Assessment & Plan (01/21/2017 11:07 AM ELECTROCARDIOGRAPH OPERATOR): As long as the patient remains on Amiodarone, thyroid and liver function testing will need to be performed at least every 6 months, as well as ECG's every 6 months for surveillance. H/O: heart disorder 09/12/2015 03/10/19 18 Overview (05/31/2016): H/O CHF History of open heart surgery 06/13/2015 11/23/2019 Overview (05/31/2016): S/P ablation of atrial flutter Secondary cardiomyopathy 03/01/2015 Overview (05/31/2016): Cardiomyopathy in other disease Assessment & Plan (03/10/2017 5:51 PM ELECTROCARDIOGRAPH OPERATOR): EF has dropped, presumably secondary to AFib RVR. Euvolemic now. On substantial doses of metoprolol, quinapril and spironolactone. Assessment & Plan (01/28/2017 6:24 PM ELECTROCARDIOGRAPH OPERATOR): EF has dropped, presumably secondary to AFib RVR. Euvolemic now. Immunizations Immunization Administration Dates Next Due Influenza, Quadrivalent, Caroline l Culture-based MDCK, Preservative Free, Antibiotic Free, Intramuscular 11/28/2019 Influenza, Quadrivalent, Spl it, Intramuscular 12/06/2018,11/30/2017,12/01/2016 Pfizer SARS-CoV-2 Monovalent Vaccination (12+ Yrs) PURPLE 05/20/2020,04/27/2020 ZOSTER LIVE 12/06/2018 ZOSTER Recombinant 02/21/2019,12/06/2018 Social History Tobacco Use Types Packs/Day Years Used Date Smoking Tobacco: Former Cigarettes 1 9 2001 Smokeless Tobacco: Never Tobacco Cessation:Counseling Given: Not Answered Alcohol Use Standard Drinks/Week Comments Yes 0 (1 standard drink = 0.6 oz pur e alcohol) AUDIT-C Answer Date Recorded Q1: How often do you have a drink containing alcohol? 4 or more times a week 09/10/2021 Q2: How many drinks containi ng alcohol do you have on a typical day when you are drinking? 7 to 9 Q3: How often do you have si x or more drinks on one occasion? Daily or almost daily 09/10/2021 Sex and Gender Information Value Date Recorded Sex Assigned at Not on file Legal Sex Male 9:22 PM ELECTROCARDIOGRAPH OPERATOR Gender Identity Not on file Sexual Orientation Not on file Last Filed Vital Signs Vital Sign Reading Time Taken Comments Blood Pressure 126/82 07/23/2024 9:01 AM CDT Pulse 88 07/23/2024 9:01 AM CDT Temperature 36.6 C (97.9 F) 09/10/2021 1:50 PM CDT Respiratory Rate 18 06/03/2023 2:43 PM CDT Oxygen Saturation 97% 07/23/2024 9:01 AM CDT Inhaled Oxygen Concentration - - Weight 103 kg (227 lb) 07/23/2024 9:01 AM CDT Height 188 cm (6' 2) 07/23/2024 9:01 AM CDT Body Mass Index 29.15 07/23/2024 9:01 AM CDT Plan of Treatment Not on file Medical Devices Implanted Type Area Branch Examiner Device Identifier Shelf Expiration Date Model / Serial / Lot [employer] [id number] System 6-12fr Mvp Venous Closure Vascade - [id number] - [id number] Implanted:Qty: 1 on 09/28/2019 by Maicol Marie MD at [facility] Collagen [employer] 08/03/2021 [id number] -[id number] / [id number] / [id number] [employer] [id number] System 6-12fr Mvp Venous Closure Vascade - [id number] - [id number] Implanted:Qty: 1 on 09/28/2019 by Maicol Marie MD at [facility] Collagen [employer] 08/03/2021 800-612C -[id number] / [id number] / [id number] [employer] [id number] System 6-12fr Mvp Venous Closure Vascade - [id number] - [id number] Implanted:Qty: 1 on 09/28/2019 by Maicol Marie MD at [facility] Collagen [employer] 08/03/2021 800-612C -[id number] / [id number] / [id number] [employer] [id number] Vascade 6/7fr Bioabsorbable Vascular System Compression Collagen - [id number] - [id number] Implanted:Qty: 1 on 09/28/2019 by Maicol Marie MD at [facility] Collagen [employer] 06/29/2021 [id number] -[id number] / [id number] / [id number] Implantable Loop Recorder Implantable Loop Recorder Left: Chest Wall Procedures Procedure Name Priority Date/Time Associated Diagnosis Comments POCT LIPID PANEL Routine 07/23/2024 8:57 AM CDT Chronic combined systolic and diastolic heart failure (HCC) from Last 3 Months Results * POCT lipid panel (07/23/2024 8:57 AM CDT) Cholesterol, POC 166 <200 MG/DL HDL, POC 71 >=40 mg/dL Triglycerides, POC 73 <=149 mg/dL LDL Cholesterol POC 81 <=129 mg/dL Chol/HDL Ratio, POC 2.4 NONE Non-HDL Cholesterol, POC 96 NONE mg/dL Cholesterol Total, POC 166 30 - 199 mg/dL Capillary blood 07/23/2024 8 :57 AM CDT us Darvin Contreras MD POINT OF CARE TEST ORDER JULIAN Final Result from Last 3 Months Insurance [facility] MEDICARE ADVANTAGE UHC MEDICARE ADVANTAGE [facility] MEDICARE ADVANTAGE Advance Directives For more information, please contact: [phone] * Full Code (Latest Code Status on File) Date Activated Date Inactivated Comments 08/17/2020 12:23 PM 08/24/2020 7:33 PM * Full Code Date Activated Date Inactivated Comments 09/29/2019 4:17 PM 10/01/2019 9:07 PM Care Teams It Business Systems Analyst Relationship Specialty Start Date End Date Crystal Khan MD PCP - General Family Medicine 01/17/21 Kristal Jensen NP Nurse Practitioner Cardiology 10/01/19
--- OUTSIDE RECORDS SUMMARY | 2024-09-03 10:55 | XMS_ITS | Encounter Summary ---
Author Organization [facility] Healthcare Address [address] [place] [address] Care Team Providers Care Supervisor Small Appliance Assembly Name Role Phone Lamin Yates MD Primary Care Provider + [phone] Alyssa Jimnéez MD Primary Care Provider + [phone] Kristal Jensen WEED INSPECTOR Unavailable [phone] Bertin Hillman Primary Care Provider [phone] Crystal Khan MD Primary Care Provider [phone] Encounter Details Date Type Department Care Team (Late st Contact Info) Description 12/24/2016 Orders Only [facility] [place] Information Management [address] [place] [id number] Scanning, Provider Social History Tobacco Use Types Packs/Day Years Used Date Smoking Tobacco: Former Alcohol Use Standard Drinks/Week Comments Yes 0 (1 standard drink = 0.6 oz pur e alcohol) Sex and Gender Information Value Date Recorded Sex Assigned at Not on file Legal Sex Male 9:22 PM BRUSHER Gender Identity Not on file Sexual Orientation Not on file documented as of this encounter Plan of Treatment Not on file documented as of this encounter Procedures Procedure Name Priority Date/Time Associated Diagnosis Comments CARDIOLOGY DOCUMENT SCAN 12/24/2016 documented in this encounter Results * Cardiology Document Scan (12/24/2016) Anatomical Region Laterality Modality Other us Provider Scanning CV CARDIAC SERVICES PROCEDURES Final Result documented in this encounter Visit Diagnoses Not on filedocumented in this encounter Care Teams Supervisor Small Appliance Assembly Relationship Specialty Start Date End Date Lamin Yates MD [address] [place] [address] PCP - General 05/24/16 03/24/18 Alyssa Jiménez MD [address] [place] [address] PCP - General Family Practice 03/25/18 03/15/20 Bertin Hillman PA [address] [place] [address] PCP - General Physician Manager Payment 03/16/20 01/16/21 Crystal Khan MD [address] [place] [address] PCP - General Family Medicine 01/17/21 Kristal Jensen NP [address] [place] [address] Nurse Practitioner Cardiology 10/01/19 documented as of this encounter
--- OUTSIDE RECORDS SUMMARY | 2024-09-03 10:55 | XMS_ITS | Encounter Summary ---
Author Organization [facility] Healthcare Address [address] [place] [address] Care Team Providers Care Industrial Spraypainter Name Role Phone Alyssa Jiménez MD Primary Care Provider + [phone] Kristal Jensen WARNING COORDINATION METEOROLOGIST Unavailable [phone] Bertin Hillman Primary Care Provider [phone] Crystal Khan MD Primary Care Provider [phone] Encounter Details Date Type Department Care Team (Late st Contact Info) Description 09/23/2019 Telephone [facility] [address] [place] [address] Transcribed Order, Provider Social History Tobacco Use Types Packs/Day Years Used Date Smoking Tobacco: Former Smokeless Tobacco: Never Alcohol Use Standard Drinks/Week Comments Yes 0 (1 standard drink = 0.6 oz pur e alcohol) Sex and Gender Information Value Date Recorded Sex Assigned at Not on file Legal Sex Male 9:22 PM RECOVERY RN Gender Identity Not on file Sexual Orientation Not on file documented as of this encounter Plan of Treatment Not on file documented as of this encounter Visit Diagnoses Not on filedocumented in this encounter Care Teams Industrial Spraypainter Relationship Specialty Start Date End Date Alyssa Jiménez MD PCP - General Family Practice 03/25/18 03/15/20 Bertin Hillman PA [address] [place] [address] PCP - General Physician Utility Bill Complaints Investigator 03/16/20 01/16/21 Crystal Khan MD [address] [place] [address] PCP - General Family Medicine 01/17/21 Kristal Jensen NP Nurse Practitioner Cardiology 10/01/19 documented as of this encounter
--- OUTSIDE RECORDS SUMMARY | 2024-09-03 10:55 | XMS_ITS | Clinical Summary ---
Author Organization [facility] [address] [facility] [address] [place] [address] Care Team Providers Care Cancellation Clerk Name Role Phone Kristal Jensen Edi GAS STATION CASHIER Unavailable [phone] Crystal Khan MD Primary Care Provider [phone] Allergies Active Allergy Reactions Criticality Noted Date Comments Latex Rash Medium 12/18/2022 Poison Sandra Extract Rash Medium 08/30/2021 Medications senna-docusate (PERICOLACE) 8.6-50 mg Take 2 tablets by mouth 2 (two) times a day 1 Active Additional Information Patient not taking.Informant: Self, [...] implantable loop record er 12/06/2019 Overview (09/26/2023): [employer] Biomonitor III-ILR. Dx; Afib/Aflutter, CM, AF/AFL Ablation. DOI 12/02/2019-[facility]. [employer] remote home monitoring Q3 months per patient request. S/P ablation of atrial fibrillation 11/23/2019 Liver disease 10/02/2018 Dilated cardiomyopathy 03/29/2018 S/P ablation of atrial flutter 03/25/2018 Overweight 03/25/2018 Mixed hyperlipidemia 03/10/2017 Assessment & Plan (03/10/2017 5:52 PM SQUASH CENTRE MANAGER): POC lipids today: Total cholesterol 249, LDL 111, TG 247, HDL 88. I calculated his 10 year risk of cardiovascular events and was only 6%, so that indicates there may not be great benefit to statin therapy at this time. Atypical atrial flutter 01/21/2017 Assessment & Plan (03/10/2017 5:49 PM SQUASH CENTRE MANAGER): Post ablation in May [address] Marie. I explained to the patient that atrial flutter and atrial fibrillation were similar but not the same arrhythmia; we have not seen any recurrence of atrial flutter.. Assessment & Plan (01/28/2017 6:25 PM SQUASH CENTRE MANAGER): History of atrial flutter, status post ablation by Dr. Marie May 2015. Assessment & Plan (01/21/2017 11:07 AM SQUASH CENTRE MANAGER): Post ablation in May 2015. Clockwise isthmus dependent. Hyponatremia 09/12/2015 Overview (05/31/2016): Hyponatremia Paroxysmal atrial fibrillation 05/02/2015 Overview (05/31/2016): PAF (paroxysmal atrial fibrillation) Assessment & Plan (03/10/2017 5:47 PM SQUASH CENTRE MANAGER): Patient has recurrent atrial fibrillation which occurred [...] option. Assessment & Plan (01/28/2017 6:23 PM SQUASH CENTRE MANAGER): Patient has recurrent atrial fibrillation which occurred [...] hypertension Assessment & Plan (03/10/2017 5:53 PM SQUASH CENTRE MANAGER): Hypertension is not at goal today. However the patient had a presyncopal episode recently and I do not want to change his meds at this time since he has poor p.o. intake. Assessment & Plan (01/28/2017 6:25 PM SQUASH CENTRE MANAGER): Hypertension is still not at goal. Chronic anticoagulation 03/01/2015 Overview (05/31/2016): Chronic anticoagulation Assessment & Plan (03/10/2017 5:50 PM SQUASH CENTRE MANAGER): Tolerating Xarelto, no bleeding. Assessment & Plan (01/28/2017 6:22 PM SQUASH CENTRE MANAGER): Tolerating Xarelto, has not missed any doses Assessment & Plan (01/21/2017 11:06 AM SQUASH CENTRE MANAGER): He was recently restarted on Xarelto 20 mg daily. He denies missing any doses within the past 3 weeks. He denies any issues with bleeding or bruising and is tolerating well. Permanent atrial fibrillation 03/01/2015 Overview (05/31/2016): Atrial fibrillation, new onset Assessment & Plan (01/21/2017 11:09 AM SQUASH CENTRE MANAGER): History of ablation of clockwise isthmus dependent [...] (08/29/2021): Added automatically from request for surgery [id number] Ankle deformity, left 08/21/20202021 Ankle fracture, left, closed , with nonunion, subsequent encounter 06/26/2020 10/15/2021 Visit for wound check 12/09/20192021 History of amiodarone therapy 10/29/2018 11/23/2019 Pre-operative cardiovascular examination 03/25/2018 10/15/2021 Nausea 03/10/2017 11/23/2019 Assessment & Plan (03/10/2017 5:50 PM SQUASH CENTRE MANAGER): Perhaps due to a virus but the amiodarone at 600 mg a day may be contributing. On amiodarone therapy 01/21/20172021 Assessment & Plan (01/28/2017 6:23 PM SQUASH CENTRE MANAGER): Use of amiodarone was reviewed with the patient including the risks and benefits of drug treatment. Some of the risks include: Liver disease, lung disease, thyroid disease, eye problems, sun sensitivity, among others. Periodic monitoring for side effects was reviewed. Assessment & Plan (01/21/2017 11:07 AM SQUASH CENTRE MANAGER): As long as the patient remains on [...] disease Assessment & Plan (03/10/2017 5:51 PM SQUASH CENTRE MANAGER): EF has dropped, presumably secondary to AFib RVR. Euvolemic now. On substantial doses of metoprolol, quinapril and spironolactone. Assessment & Plan (01/28/2017 6:24 PM SQUASH CENTRE MANAGER): EF has dropped, presumably secondary to AFib RVR. Euvolemic now. Encounters Date Type Department Care Team Description 07/23/2024 9:00 AM CDT Office Visit [facility] Cardiology at [address] [place] [address] Darvin Contreras MD Chronic combined systolic and diastolic heart failure (HCC) (Primary Dx); Paroxysmal atrial fibrillation (HCC); Permanent atrial fibrillation (HCC); S/P ablation of atrial fibrillation from Last 3 Months Immunizations Immunization Administration Dates Next Due Influenza, Quadrivalent, Caroline l Culture-based MDCK, Preservative Free, Antibiotic Free, Intramuscular 11/28/2019 Influenza, Quadrivalent, Spl it, Intramuscular 12/06/2018,11/30/2017,12/01/2016 Pfizer SARS-CoV-2 Monovalent Vaccination (12+ Yrs) PURPLE 05/20/2020,04/27/2020 ZOSTER LIVE 12/06/2018 ZOSTER Recombinant 02/21/2019,12/06/2018 Surgical History Surgery Date Site/Laterality Comments CARDIAC ELECTROPHYSIOLOGY STUDY AND ABLATION x 2 CARDIAC CATHETERIZATION CARDIOVERSION N/A x4 COLONOSCOPY 02/24/2021 - 02/23/2022 N/A OTHER SURGICAL HISTORY Loop Recorder implanted Medical History Medical History Date Comments Anxiety disorder Anxiety Gastroesophageal reflux disease GERD Hx Other Medical Hyponatremia; C omments: ELU 03/01/2015 - Hx Other Medical ED; Comments: Denisse HALL 03/01/2015 - Status post placement of imp lantable loop recorder left chest wall Atrial fibrillation (HCC) Family History Medical History Relation Name Comments Congenital heart disease Brother 1 supriya Heart disease Brother 1 supriya Heart disease; ELU 03/01/2015 -Blue Baby at , had a fib ablation Atrial fibrillation Brother 2 S/P abla tion Colon cancer Father neymar Cancer, colon; Hypertension Father neymar Hypertension; Hypertension Mother hemalatha Hypertension; Anesthesia problems Neg Hx Malig Hypertension Neg Hx Relation Name Status Comments Brother 1 supriya Brother 2 Father neymar Mother hemalatha Social History Tobacco Use Types Packs/Day Years Used Date Smoking Tobacco: Former Cigarettes 1 979 - 2001 Smokeless Tobacco: Never Tobacco Cessation:Counseling Given: [...] on file Legal Sex Male 9:22 PM SQUASH CENTRE MANAGER Gender Identity Not on file Sexual Orientation Not on file Obstetrics History Last Filed Vital Signs Vital Sign Reading [...] 07/23/2024 9:01 AM CDT Plan of Treatment Health Maintenance Due Date Last Done Comments Colon Cancer Screening-Colonoscopy 1960 Depression Screening 1960 Hepatitis C Screening 1960 Prostate Cancer Screening-PSA 1960 DTaP/Tdap/Td Vaccine (1 - Tdap) 06/06/1971 Hepatitis B Screening 1978 Regular Well Visit/Exam 18-64 1978 Pneumococcal vaccine <65 (1 of 2 - PCV) 06/06/1979 Covid-19 Vaccine ( - 2023-2 5 season) 2023 12/23/2020, 05/20/2020, 04/27/2020 Influenza Vaccine (#1) 2024 , 11/28/2019, 12/06/2018, Additional history exists Zoster Vaccine Completed 02/21/2019, 11/24, 12/06/2018 Medical Devices Implanted Type Area Equipment [id number] Device Identifier Shelf Expiration Date Model / Serial / Lot [employer] [id number] System 6-12fr Mvp Venous Closure Vascade - [id number] - [id number] Implanted:Qty: 1 on 09/28/2019 by Maicol Marie MD at [facility] [employer] 08/03/2021 [id number] / [id number] / [id number] [employer] [id number] System 6-12fr Mvp Venous Closure Vascade - [id number] - [id number] Implanted:Qty: 1 on 09/28/2019 by Maicol Marie MD at [facility] [employer] 08/03/2021 800-612C -[id number] / [id number] / [id number] [employer] [id number] System 6-12fr Mvp Venous Closure Vascade - [id number] - [id number] Implanted:Qty: 1 on 09/28/2019 by Maicol Marie MD at [facility] [employer] 08/03/2021 800-612C -[id number] / [id number] / [id number] [employer] [id number] Vascade 6/7fr Bioabsorbable Vascular System Compression Collagen - [id number] - [id number] Implanted:Qty: 1 on 09/28/2019 by Maicol Marie MD at [facility] [employer] 06/29/2021 [id number] -[id number] / [id number] / [id number] Implantable Loop Recorder Implantable Loop Recorder [...] Final Result from Last 3 Months Insurance [id number] UHC MEDICARE ADVANTAGE [facility] MED[facility] Address: [place] [address] UHC MEDICARE ADVANTAGE [facility] MEDIC[facility] Address: [place] [address] UHC MEDICARE ADVANTAGE [facility] MEDIC[facility] Address: [facility] [address] [place] [address] Advance Directives For more information, please contact: [phone] * Full Code (Latest Code Status on File) Date Activated Date Inactivated Comments 08/17/2020 12:23 PM 08/24/2020 7:33 PM * Full Code Date Activated Date Inactivated Comments 09/29/2019 4:17 PM 10/01/2019 9:07 PM Care Teams Cancellation Clerk Relationship Specialty Start Date End Date Crystal Khan MD PCP - General Family Medicine 01/17/21 Kristal Jensen NP Nurse Practitioner Cardiology 10/01/19
--- OUTSIDE RECORDS SUMMARY | 2024-09-03 10:55 | XMS_ITS | Clinical Summary ---
Author Organization [facility] Address [address] [place] [address] Care Team Providers Care Coke Wheeler Name Role Phone Crystal Khan MD Primary Care Provider [phone] Allergies Active Allergy Reactions Criticality Noted Date Comments Latex Rash Low 12/18/2022 Poison Sandra Extract Rash Medium 08/30/2021 Medications rivaroxaban (Xarelto) 20 mg Tablet Take 1 Tablet (20 mg) by mouth daily after supper. 30 Tablet 1 Active gabapentin (NEURONTIN) 300 mg capsule Take 1 capsule by mouth twice daily and take 2 capsules by mouth at bedtime. 90 Capsule 2 10/24/2021 2:39 PM CDT 2 Active traMADoL (ULTRAM) 50 mg tablet Take 0.5 Tablets (25 mg) by mouth every 6 hours as needed for pain 60 Tablet 11/21/2021 11:51 AM CDT 2 Active ketorolac tromethamine (ACULAR) 0.5 % solution ADMINISTER 1 drop in surgical eye 4 times per day starting 2 days prior to surgery, continuing for 2 weeks after surgery. 5 mL 1 04/08/2022 10:53 AM EMBROIDERY SUPERVISOR 3 Active acetaminophen (TYLENOL ARTHRITIS) 650 mg Extended Release tablet Take 650 mg by mouth. Active atorvastatin (LIPITOR) 40 mg tablet Take 1 Tablet by mouth daily. 3 Active cyanocobalamin (VITAMIN B-12) 500 mcg tablet Take 500 mcg by mouth 2 times daily. Active lisinopriL (PRINIVIL) 20 mg tablet Take 1 Tablet by mouth 2 times daily. 3 Active metoprolol succinate (TOPROL XL) 200 mg Extended Release 24 hour tablet Take 1 Tablet by mouth daily. 3 Active Milk Thistle 500 mg Capsule Take 1 Capsule by mouth 2 times daily. Active sennosides-docusa te sodium (SENNA-S) 8.6-50 mg tablet Take 2 Tablets by mouth 2 times daily. 1 Active verapamiL (CALAN SR) 240 mg Sustained Release tablet Take 240 mg by mouth daily at bedtime. 3 Active tiZANidine (Zanaflex) 4 mg Tablet TAKE 1-2 TABLETS BY MOUTH ONCE DAILY AT BEDTIME NEEDED 60 Tablet 2 01/31/2023 11:56 AM EMBROIDERY SUPERVISOR 3 Active tiZANidine (Zanaflex) 4 mg Tablet TAKE 1-2 TABLETS BY MOUTH AT BEDTIME NEEDED 60 Tablet 2 3 Active rivaroxaban (Xarelto) 20 mg Tablet Take 1 tablet by mouth with evening meal 90 Tablet 1 01/05/2024 2:57 PM EMBROIDERY SUPERVISOR 4 Active traMADoL (ULTRAM) 50 mg tablet Take 0.5 Tablets (25 mg) by mouth every 6 hours as needed. 60 Tablet 02/06/2024 12:21 PM EMBROIDERY SUPERVISOR 4 Active Active Problems No known active problems Encounters Date Type Department Care Team Description 08/09/2024 Orders Only [facility] Oncology and Hematology [facility] [address] [place] [address] aErl Eaton MD Plasma cell disorder (Primary Dx) 06/25/2024 Abstract [facility] Oncology and Hematology [place] [address] [place] [address] Earl Eaton MD from Last 3 Months Family History Medical History Relation Name Comments Colon Cancer Father Relation Name Status Comments Brother Alive Father Mother Sister Alive Son 1 Alive Son 2 Alive Social History Tobacco Use Types Packs/Day Years Used Date Smoking Tobacco: Former Cigarettes Q uit: 2000 Smokeless Tobacco: Never Tobacco Cessation:Counseling Given: Not Answered Alcohol Use Standard Drinks/Week Comments Yes 0 (1 standard drink = 0.6 oz pur e alcohol) Sex and Gender Information Value Date Recorded Sex Assigned at Not on file Legal Sex Male 3:27 PM CDT Gender Identity Not on file Sexual Orientation Not on file Last Filed Vital Signs Vital Sign Reading Time Taken Comments Blood Pressure 124/83 08/07/2023 9:53 AM CDT Pulse 77 08/07/2023 9:53 AM CDT Temperature 35.9 C (96.6 F) 08/07/2023 9:53 AM CDT Respiratory Rate 14 08/07/2023 9:53 AM CDT Oxygen Saturation 96% 08/07/2023 9:53 AM CDT Inhaled Oxygen Concentration - - Weight 104.8 kg (231 lb) 08/07/2023 9:53 AM CDT Height - - Body Mass Index - - Plan of Treatment Upcoming Encounters Date Type Department Care Team (Late st Contact Info) Description 09/09/2024 11:30 AM CDT Office Visit [facility] Oncology and Hematology [facility] [address] [facility] [address] [place] [address] Earl Eaton MD [address] [facility] [address] [place] [address] Health Maintenance Due Date Last Done Comments DTAP/TDAP/TD VACCINES (1 - Tdap) 06/06/1979 COLORECTAL SCREENING 2005 Colorectal Cancer Screening 2005 FIT-DNA Q 3 years 2005 FIT/FOBT Q 1 year 2005 Flex Sig/CT Colonography Q 5 years 2005 COVID-19 Vaccine (3 - 2023-2 5 season) 2023 05/20/2020, 04/27/2020 INFLUENZA VACCINE (#1) 2024 , 12/06/2018, 11/30/2017, Additional history exists RSV VACCINE (60+ or ) (1 - 1-dose 75+ series) 06/06/2035 ZOSTER VACCINE Completed 02/21/2019, 11/24, 12/06/2018 [place] [address] RX [employer] (INTERNAL) [facility] [employer] RX [employer] RX Member Subscriber Plan / Payer (Ef fective for All Dates) Name:Terrence Todd Relation to Subscriber:Self Name:Terrence Todd Payer ID:Not on file Group ID:[id number] Type:RX Medicare Part D Address: [place] RX [employer] (INTERNAL) [facility] [employer] Commercial [facility] [id number] Care Teams Coke Wheeler Relationship Specialty Start Date End Date Crystal Khan MD [address] [place] [id number] PCP - General Family Practice 12/18/22
== END 2024-09-03 10:45 | disposition home or self-care (01) ==
PROVIDERS: PCP Family Medicine; Visit Provider Family Medicine
DX: M23.41 Loose body in knee, right knee (principal)
CPT/HCPCS: 73564